=== PATIENT | male | born 1950 | race Caucasian/White ===

== ENCOUNTER 2017-06-19 22:41 | Inpatient (IN) | payer BC, OTHER ==
--- NOTE | 2017-06-19 23:12 | HP ---
CIWA Score - CIWA Score Nausea/Vomitin-Mild Nausea/No Vomiting Muscle Tremors: 4-Moderate,w/Arms Extend Anxiety: 4-Mod. Anxious/Guarded Agitation: 3 Paroxysmal Sweats: 1-Minimal Palms Moist Orientation: 0-Oriented Tacttile Disturbances: 0-None Auditory Disturbances: 0-None Visual Disturbances: 1-Very Mild Sensitivity Headache: 1-Very Mild CIWA-Ar Total Score: 15 Admission ROS BHS - HPI Chief Complaint: SEEKING DETOX DUE TO WITHDRAWAL SX'S FROM ALCOHOLISM. Allergies/Adverse Reactions: Allergies Allergy/AdvReac Type Severity Reaction Status Date / Time No Known Allergies Allergy Verified 01/10/13 08:30 History of Present Illness: 66 Y.O. MALE WITH LONG HX/O OF ALCOHOLISM SENT BY [facility] FOR DETOX TXMENT. CLIENT WAS SEEN AND TREATED FOR A FALL WHERE HE SUSTAINED A 5 CM LAC TO HIS FOREHEAD. HE HAS SINCE BEEN CLEARED FOR DETOX. CASE WAS D/W DR. MYERS WHOM ACCEPTED THE CLIENT. THIS IS CLIENTS FIRST TIME IN DETOX. Exam Limitations: No Limitations - Ebola screening Have you traveled outside of the country in the last 21 days: No Have you had contact with anyone from an Ebola affected area: No Have you been sick,other than usual withdrawal symptoms: No Do you have a fever: No - Review of Systems Constitutional: Loss of Appetite, Changes in sleep EENT: reports: Dental Problems (DENTURES) Respiratory: reports: No Symptoms reported Cardiac: reports: No Symptoms Reported GI: reports: Poor Appetite, Poor Fluid Intake : reports: No Symptoms Reported Musculoskeletal: reports: No Symptoms Reported Integumentary: reports: Flushing, Other (LAC TO FOREHEAD) Neuro: reports: No Symptoms reported Endocrine: reports: No Symptoms Reported Hematology: reports: No Symptoms Reported Psychiatric: reports: No Sypmtoms Reported Other Systems: Reviewed and Negative Patient History - Patient Medical History Hx Anemia: No Hx Asthma: No Hx Chronic Obstructive Pulmonary Disease (COPD): No Hx Cancer: No Hx Cardiac Disorders: No Hx Congestive Heart Failure: No Hx Hypertension: No Hx Hypercholesterolemia: No Hx Pacemaker: No HX Cerebrovascular Accident: No Hx Seizures: No Hx Dementia: No Hx Diabetes: No Hx Gastrointestinal Disorders: No Hx Liver Disease: No Hx Genitourinary Disorders: No Hx Sexually Transmitted Disorders: No Hx Renal Disease (ESRD): No Hx Thyroid Disease: No Hx Human Immunodeficiency Virus (HIV): No Hx Hepatitis C: No Hx Depression: No Hx Suicide Attempt: No Hx Bipolar Disorder: No Hx Schizophrenia: No Other Medical History: DENIES - Patient Surgical History Past Surgical History: Yes Other Surgical History: PROSTATE SURGERY-?PROSTATECTOMY Anesthesia Reaction: No - PPD History Previous Implant?: Yes Documented Results: Negative w/o proof Implanted On Prior [facility] Admission?: No PPD to be Administered?: Yes - Smoking Cessation Smoking history: Current some day smoker Have you smoked in the past 12 months: Yes Aproximately how many cigarettes per day: 6 Cigars Per Day: 0 Hx Chewing Tobacco Use: No Initiated information on smoking cessation: Yes 'Breaking Loose' booklet given: 06/19/17 - Substance & Tx. History Hx Alcohol Use: Yes Hx Substance Use: Yes Substance Use Type: Alcohol Hx Substance Use Treatment: No - Substances Abused WINE Route: Oral Frequency: 3-6 times per week Amount used: 2 GLASSES Age of first use: 21 Date of Last Use: 06/19/17 Admission Physical Exam [facility] - Physical General Appearance: Yes: Mild Distress, Tremorous, Anxious HEENTM: Yes: EOMI, SHAMEKA, Pharynx Normal, Mc (FRONTAL SCALP HEMATOMA), Other ( NASAL BRUSING 2/2 FALL WITH BILATERAL NASAL BONE FX) Respiratory: Yes: Chest Non-Tender, Lungs Clear, Normal Breath Sounds, No Respiratory Distress, No Accessory Muscle Use Neck: Yes: No masses,lesions,Nodules, Supple, Trachea in good position Breast: Yes: Breast Exam Deferred Cardiology: Yes: Regular Rhythm, Regular Rate, S1, S2 Abdominal: Yes: Normal Bowel Sounds, Non Tender, Flat, Soft Genitourinary: Yes: Within Normal Limits Back: Yes: Normal Inspection Musculoskeletal: Yes: full range of Motion, Gait Steady Extremities: Yes: Normal Range of Motion, Non-Tender, Tremors Neurological: Yes: Alert, Motor Strength 5/5 Integumentary: Yes: Warm, Other (FACIAL FLUSHING 7 CM LAC TO FOREHEAD WITH DERMABOND) Lymphatic: Yes: Within Normal Limits - Diagnostic (1) Alcohol dependence with uncomplicated withdrawal Current Visit: Yes Status: Chronic (2) Nicotine dependence Current Visit: Yes Status: Chronic Qualifiers: Nicotine product type: cigarettes Substance use status: uncomplicated Qualified Code(s): F17.210 - Nicotine dependence, cigarettes, uncomplicated (3) Lupus Current Visit: Yes Status: Chronic (4) Laceration of forehead Current Visit: Yes Status: Acute (5) Nasal bone fracture Current Visit: Yes Status: Acute (6) Hematoma of frontal scalp Current Visit: Yes Status: Acute Cleared for Admission S - Detox or Rehab [facility] Level of Care: Medically Managed Detox Regimen/Protocol: Librium
[2017-06-19] MEDS ORDERED: P-EPHED 60MG/TRIPROLIDI 2.5MG TABLET PO PRN (23:23)
[2017-06-19] MEDS ORDERED: MAGNESIUM HYDROX 2400MG/30ML ORAL SUSPENSION 30 ML CUP PO PRN (23:23)
[2017-06-19] MEDS ORDERED: NICOTINE POLACRILEX 2 MG GUM BC PRN (23:23)
[2017-06-19] MEDS ORDERED: LOPERAMIDE HCL 2 MG CAPSULE PO PRN (23:23)
[2017-06-19] MEDS ORDERED: hydrOXYzine PAMOATE 50 MG CAPSULE (FP) PO PRN (23:23)
[2017-06-19] MEDS ORDERED: chlordiazePOXIDE HCL 25 MG CAPSULE PO PRN (23:23)
[2017-06-19] MEDS ORDERED: guaiFENesin/D-METHORPHAN HB 10 ML UNIT-DOSE CUPS PO PRN (23:23)
[2017-06-19] MEDS ORDERED: MAGNESIUM CITRATE 300 ML BOTTLE PO PRN (23:23)
[2017-06-19] MEDS ORDERED: IBUPROFEN 400 MG TABLET (FP) PO PRN (23:23)
[2017-06-19] MEDS ORDERED: MAG HYDROX/AL HYDROX/SIMETH 30 ML UNIT-DOSE CUP PO PRN (23:23)
[2017-06-19] MEDS ORDERED: MENTHOL/PHENOL 1 EACH UD MM PRN (23:23)
[2017-06-19 23:39] VITALS: BMI 21.8
[2017-06-20] MEDS: chlordiazePOXIDE HCL 25 MG CAPSULE PO SCH ×4 (01:32→17:34)
--- NOTE | 2017-06-20 07:29 | PN ---
[facility] Progress Note Note: LATE ENTRY INFORMED CLIENT FELL WHILE IN [facility] AROUND 12:20 am. PER CLIENT HE STUMBLED WHEN HE GOT UP FROM A SEATED POSITION DUE TO R KNEE WEAKNESS. HE PUT HIS HANDS ON THE GROUND NOT TO FALL. DENIES ANY NEW INJURIES PE: NO VISIBLE INJURIES P: CONT FALL PROTOCOL #1 CANE TO ASSIST WITH AMBULATION
[2017-06-20] MEDS: NICOTINE 14 MG/24 HOURS TOPICAL PATCH TD SCH (10:31)
[2017-06-20] MEDS: PRENATAL VITAMINS W/ FOLIC ACID TABLET (FP) PO SCH (10:31)
--- NOTE | 2017-06-20 12:18 | EKG ---
Test Reason : Blood Pressure : / mmHG Vent. Rate : 076 BPM Atrial Rate : 076 BPM P-R Int : 138 ms QRS Dur : 078 ms QT Int : 378 ms P-R-T Axes : 066 070 073 degrees QTc Int : 425 ms NORMAL SINUS RHYTHM NORMAL ECG WHEN COMPARED WITH ECG OF 10-NOV-2012 22:58, NO SIGNIFICANT CHANGE WAS FOUND Confirmed by CATALINA RAMIREZ MD ([id number]) on 06/20/2017 12:18:30 PM Referred By: Confirmed By:CATALINA RAMIREZ MD
[2017-06-20 12:34] LABS: URINE APPEARANCE SLCLOUDY; URINE BILIRUBIN NEGATIVE (NEGATIVE); URINE BLOOD 1+ (NEGATIVE); URINE COLOR LTYELLOW; URINE GLUCOSE (UA) NEGATIVE (NEGATIVE); URINE KETONE TRACE (NEGATIVE); URINE LEUK ESTERASE NEGATIVE (NEGATIVE); URINE NITRITE NEGATIVE (NEGATIVE); URINE PROTEIN NEGATIVE (NEGATIVE); URINE UROBILINOGEN NEGATIVE mg/dL (0.2-1.0)
[2017-06-20 12:44] LABS: HEMATOCRIT 42.5 % (35.4-49); HEMOGLOBIN 13.5 GM/dL (11.7-16.9); MCH 29.7 pg (25.7-33.7); MCHC 31.8 g/dl (32.0-35.9); MEAN CELL VOLUME 93.3 fl (80-96); MEAN PLT VOLUME 8.2 fl (7.5-11.1); PLATELET COUNT 214 K/MM3 (134-434); RBC 4.55 M/mm3 (4.00-5.60); RDW 14.6 % (11.9-15.9); WHITE BLOOD COUNT 5.9 K/mm3 (4.0-10.0)
[2017-06-20 12:49] LABS: CHLORIDE 103 mmol/L (98-107); POTASSIUM 4.2 mmol/L (3.5-5.1); SODIUM 138 mmol/L (136-145)
[2017-06-20 12:53] LABS: URINE BACTERIA RARE /hpf (NONE SEEN)
[2017-06-20 12:56] LABS: ALBUMIN 3.8 g/dl (3.4-5.0); ALK PHOS 65 U/L (45-117); ANION GAP 5 (8-16); BILIRUBIN,TOTAL 0.5 mg/dL (0.2-1.0); BLOOD UREA NITROGEN 11 mg/dL (7-18); CALCIUM 8.3 mg/dL (8.5-10.1); CO2 30 mmol/L (21-32); CREATININE 0.8 mg/dL (0.7-1.3); GLUCOSE,RANDOM 72 mg/dL (74-106); SGOT/AST 21 U/L (15-37); SGPT/ALT 20 U/L (12-78); TOT PROT 6.7 g/dl (6.4-8.2)
[2017-06-20] MEDS: HYDROCORTISONE VALERATE TP SCH ×2 (13:34→22:24)
[2017-06-20] MEDS: PIMECROLIMUS TP SCH (13:34)
--- NOTE | 2017-06-20 16:19 | PN ---
[facility] CIWA - CIWA Score Nausea/Vomitin-No Nausea/No Vomiting Muscle Tremors: 3 Anxiety: 4-Mod. Anxious/Guarded Agitation: 3 Paroxysmal Sweats: 1-Minimal Palms Moist Orientation: 0-Oriented Tacttile Disturbances: 3-Moderate Itch/Numb/Burn Auditory Disturbances: 0-None Visual Disturbances: 2-Mild Sensitivity Headache: 0-None Present CIWA-Ar Total Score: 16 BHS Progress Note (SOAP) Subjective: Sweating, Tremors, Interrupted sleep, Anxious. Objective: PT. A & O X 3, OBSERVED AMBULATING ON UNIT. NO ACUTE DISTRESS. 06/20/17 16:16 Vital Signs Temperature 98.1 F 06/20/17 15:05 Pulse Rate 84 06/20/17 15:05 Respiratory Rate 18 06/20/17 15:05 Blood Pressure 118/75 06/20/17 15:05 O2 Sat by Pulse Oximetry (%) Laboratory Tests 06/20/17 06/20/17 06/20/17 07:50 07:50 07:50 WBC 5.9 RBC 4.55 Hgb 13.5 Hct 42.5 MCV 93.3 MCH 29.7 MCHC 31.8 L RDW 14.6 Plt Count 214 D MPV 8.2 Sodium 138 Potassium 4.2 Chloride 103 Carbon Dioxide 30 Anion Gap 5 L BUN 11 D Creatinine 0.8 Creat Clearance w eGFR > 60 Random Glucose 72 L D Calcium 8.3 L Total Bilirubin 0.5 D AST 21 D ALT 20 Alkaline Phosphatase 65 Total Protein 6.7 Albumin 3.8 Urine Color Urine Appearance Urine pH Ur Specific [place] Urine Protein Urine Glucose (UA) Urine Ketones Urine Blood Urine Nitrite Urine Bilirubin Urine Urobilinogen Ur Leukocyte Esterase Urine WBC (Auto) Urine RBC (Auto) Urine Bacteria RPR Titer Nonreactive 06/20/17 08:30 WBC RBC Hgb Hct MCV MCH MCHC RDW Plt Count MPV Sodium Potassium Chloride Carbon Dioxide Anion Gap BUN Creatinine Creat Clearance w eGFR Random Glucose Calcium Total Bilirubin AST ALT Alkaline Phosphatase Total Protein Albumin Urine Color Ltyellow Urine Appearance Slcloudy Urine pH 7.0 Ur Specific [place] 1.013 Urine Protein Negative Urine Glucose (UA) Negative Urine Ketones Trace H Urine Blood 1+ H Urine Nitrite Negative Urine Bilirubin Negative Urine Urobilinogen Negative Ur Leukocyte Esterase Negative Urine WBC (Auto) None Urine RBC (Auto) 4 Urine Bacteria Rare RPR Titer LABS NOTED. Assessment: 06/20/17 16:17 WITHDRAWAL SYMPTOMS. Plan: CONTINUE DETOX.
[2017-06-20] MEDS: THIAMINE HCL 100 MG TABLET (FP) PO SCH (22:24)
[2017-06-20] MEDS: chlordiazePOXIDE 5 MG CAPSULE PO SCH (22:24)
[2017-06-21] MEDS: chlordiazePOXIDE 5 MG CAPSULE PO SCH ×3 (05:52→17:58)
[2017-06-21] MEDS: PRENATAL VITAMINS W/ FOLIC ACID TABLET (FP) PO SCH (10:16)
[2017-06-21] MEDS: NICOTINE 14 MG/24 HOURS TOPICAL PATCH TD SCH (10:17)
[2017-06-21] MEDS: PIMECROLIMUS TP SCH (10:18)
[2017-06-21] MEDS: HYDROCORTISONE VALERATE TP SCH ×2 (10:18→22:47)
--- NOTE | 2017-06-21 13:36 | PN ---
S CIWA - CIWA Score Nausea/Vomitin Muscle Tremors: 3 Anxiety: 3 Agitation: 2 Paroxysmal Sweats: 1-Minimal Palms Moist Orientation: 0-Oriented Tacttile Disturbances: 1-Very Mild Itch/Numbness Auditory Disturbances: 1-Very Mild Visual Disturbances: 0-None Headache: 2-Mild CIWA-Ar Total Score: 16 BHS Progress Note (SOAP) Subjective: ALERT,IRRITABLE,ANXIOUS,INTERRUPTED SLEEP,TREMOR,OLD LACERATION OF FRONTAL AREA Objective: 06/21/17 13:33 Vital Signs Temperature 99.0 F 06/21/17 13:16 Pulse Rate 74 06/21/17 13:16 Respiratory Rate 20 06/21/17 13:16 Blood Pressure 117/74 06/21/17 13:16 O2 Sat by Pulse Oximetry (%) Assessment: 06/21/17 13:34 WITHDRAWAL SYMPTOM Plan: CONTINUE DETOX,BACITRACIN OINTMENT BID
[2017-06-21] MEDS: BACITRACIN 15 GM TUBE TOPICAL OINTMENT TP SCH ×2 (15:12→22:46)
[2017-06-21] MEDS ORDERED: BACITRACIN 0.9 GM PACKET ONE (20:11)
[2017-06-21] MEDS: chlordiazePOXIDE HCL 10 MG CAPSULE PO SCH (22:47)
[2017-06-21] MEDS: THIAMINE HCL 100 MG TABLET (FP) PO SCH (22:47)
[2017-06-21] MEDS: ACETAMINOPHEN 325 MG TABLET (FP) PO PRN (22:48)
[2017-06-22] MEDS: chlordiazePOXIDE HCL 10 MG CAPSULE PO SCH ×3 (05:15→17:38)
[2017-06-22] MEDS: PRENATAL VITAMINS W/ FOLIC ACID TABLET (FP) PO SCH (10:15)
[2017-06-22] MEDS: NICOTINE 14 MG/24 HOURS TOPICAL PATCH TD SCH (10:17)
[2017-06-22] MEDS: PIMECROLIMUS TP SCH (10:18)
[2017-06-22] MEDS: HYDROCORTISONE VALERATE TP SCH ×2 (10:18→22:13)
[2017-06-22] MEDS: BACITRACIN 15 GM TUBE TOPICAL OINTMENT TP SCH ×2 (10:55→22:13)
--- NOTE | 2017-06-22 16:07 | PN ---
[facility] Progress Note (SOAP) Subjective: Tremors, Anxious. Objective: PT. A & O X 3, OBSERVED AMBULATING ON UNIT. NO ACUTE DISTRESS. WOUND PATIENT'S HEAD HEALING WELL. NO SIGNS OF INFECTION OR UNUSUAL DISCHARGE NOTED. 06/22/17 16:05 Vital Signs Temperature 97.7 F 06/22/17 13:57 Pulse Rate 77 06/22/17 13:57 Respiratory Rate 20 06/22/17 13:57 Blood Pressure 129/84 06/22/17 13:57 O2 Sat by Pulse Oximetry (%) Laboratory Tests 06/20/17 06/20/17 06/20/17 07:50 07:50 07:50 WBC 5.9 RBC 4.55 Hgb 13.5 Hct 42.5 MCV 93.3 MCH 29.7 MCHC 31.8 L RDW 14.6 Plt Count 214 D MPV 8.2 Sodium 138 Potassium 4.2 Chloride 103 Carbon Dioxide 30 Anion Gap 5 L BUN 11 D Creatinine 0.8 Creat Clearance w eGFR > 60 Random Glucose 72 L D Calcium 8.3 L Total Bilirubin 0.5 D AST 21 D ALT 20 Alkaline Phosphatase 65 Total Protein 6.7 Albumin 3.8 Urine Color Urine Appearance Urine pH Ur Specific [place] Urine Protein Urine Glucose (UA) Urine Ketones Urine Blood Urine Nitrite Urine Bilirubin Urine Urobilinogen Ur Leukocyte Esterase Urine WBC (Auto) Urine RBC (Auto) Urine Bacteria RPR Titer Nonreactive 06/20/17 08:30 WBC RBC Hgb Hct MCV MCH MCHC RDW Plt Count MPV Sodium Potassium Chloride Carbon Dioxide Anion Gap BUN Creatinine Creat Clearance w eGFR Random Glucose Calcium Total Bilirubin AST ALT Alkaline Phosphatase Total Protein Albumin Urine Color Ltyellow Urine Appearance Slcloudy Urine pH 7.0 Ur Specific [place] 1.013 Urine Protein Negative Urine Glucose (UA) Negative Urine Ketones Trace H Urine Blood 1+ H Urine Nitrite Negative Urine Bilirubin Negative Urine Urobilinogen Negative Ur Leukocyte Esterase Negative Urine WBC (Auto) None Urine RBC (Auto) 4 Urine Bacteria Rare RPR Titer LABS NOTED. Assessment: 06/22/17 16:06 WITHDRAWAL SYMPTOMS. Plan: CONTINUE DETOX. INCREASE DAILY PO FLUID INTAKE.
[2017-06-22] MEDS: ACETAMINOPHEN 325 MG TABLET (FP) PO PRN (22:11)
[2017-06-22] MEDS: THIAMINE HCL 100 MG TABLET (FP) PO SCH (22:12)
[2017-06-23 09:28] VITALS: BP 134/81; PULSE 83; TEMP 98.6
--- NOTE | 2017-06-23 16:30 | DS ---
[facility] Detox Discharge Summary Admission Date: 06/19/17 Discharge Date: 06/23/17 - History Present History: Alcohol Dependence Additional Comments: PATIENT RETURNING HOME, WILL ATTEND OUTPATIENT SUPPORT GROUP PROGRAMS. PATIENT ADVISED TO FOLLOW-UP WITH [employer] ATT[employer]ER DR. [place] ([place] AFTER DISCHARGE FROM DETOX FOR HISTORY OF RECENT HEAD INJURY. PATIENT WAS DISCHARGED FROM DETOX UNIT IN STABLE MEDICAL CONDITION. Pertinent Past History: Lupus, Laceration of Forehead, Nasal Bone Fracture, Hematoma of Frontal Scalp, Nicotine Dependence. - Physical Exam Results Vital Signs: Vital Signs Temperature 98.6 F 06/23/17 09:27 Pulse Rate 83 06/23/17 09:27 Respiratory Rate 18 06/23/17 09:27 Blood Pressure 134/81 06/23/17 09:27 O2 Sat by Pulse Oximetry (%) Pertinent Admission Physical Exam Findings: WITHDRAWAL SYMPTOMS. Laboratory Tests 06/20/17 06/20/17 06/20/17 07:50 07:50 07:50 WBC 5.9 RBC 4.55 Hgb 13.5 Hct 42.5 MCV 93.3 MCH 29.7 MCHC 31.8 L RDW 14.6 Plt Count 214 D MPV 8.2 Sodium 138 Potassium 4.2 Chloride 103 Carbon Dioxide 30 Anion Gap 5 L BUN 11 D Creatinine 0.8 Creat Clearance w eGFR > 60 Random Glucose 72 L D Calcium 8.3 L Total Bilirubin 0.5 D AST 21 D ALT 20 Alkaline Phosphatase 65 Total Protein 6.7 Albumin 3.8 Urine Color Urine Appearance Urine pH Ur Specific [place] Urine Protein Urine Glucose (UA) Urine Ketones Urine Blood Urine Nitrite Urine Bilirubin Urine Urobilinogen Ur Leukocyte Esterase Urine WBC (Auto) Urine RBC (Auto) Urine Bacteria RPR Titer Nonreactive 06/20/17 08:30 WBC RBC Hgb Hct MCV MCH MCHC RDW Plt Count MPV Sodium Potassium Chloride Carbon Dioxide Anion Gap BUN Creatinine Creat Clearance w eGFR Random Glucose Calcium Total Bilirubin AST ALT Alkaline Phosphatase Total Protein Albumin Urine Color Ltyellow Urine Appearance Slcloudy Urine pH 7.0 Ur Specific [place] 1.013 Urine Protein Negative Urine Glucose (UA) Negative Urine Ketones Trace H Urine Blood 1+ H Urine Nitrite Negative Urine Bilirubin Negative Urine Urobilinogen Negative Ur Leukocyte Esterase Negative Urine WBC (Auto) None Urine RBC (Auto) 4 Urine Bacteria Rare RPR Titer LABS NOTED. - Treatment Hospital Course: Detox Protocol Followed, Detoxed Safely, Responded well, Discharged Condition Good Patient has Accepted a Rehab Referral to: PT. GOING HOME, WILL ATTEND OUTPATIENT AA SUPPORT GROUP MEETINGS. - Medication Discharge Medications: Ambulatory Orders Multivitamin [Multivitamins] 1 each PO DAILY 01/10/13 Hydrocortisone Valerate 45 gm TP BID 06/19/17 Pimecrolimus [Elidel] 60 gm TP DAILY 06/19/17 Triamcinolone 0.1% Cream [Aristocort 0.1% Cream -] 1 applic TP BID 06/19/17 - Diagnosis (1) Hematoma of frontal scalp Status: Acute Qualifiers: Encounter type: subsequent encounter Qualified Code(s): S00.03XD - Contusion of scalp, subsequent encounter (2) Laceration of forehead Status: Acute Qualifiers: Encounter type: subsequent encounter Qualified Code(s): S01.81XD - Laceration without foreign body of other part of head, subsequent encounter (3) Nasal bone fracture Status: Acute Qualifiers: Encounter type: subsequent encounter Fracture type: closed Fracture healing: with routine healing Qualified Code(s): S02.2XXD - Fracture of nasal bones, subsequent encounter for fracture with routine healing (4) Alcohol dependence with uncomplicated withdrawal Status: Acute (5) Lupus Status: Chronic Qualifiers: Lupus erythematosus form: unspecified Qualified Code(s): 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
== END 2017-06-23 09:21 | disposition home or self-care (01) | DRG 897 ==
LOC: YASAS 22:41 → Y3N 23:48
PROVIDERS: ADMIT Internal Medicine; ATTEND Internal Medicine
PROC: HZ2ZZZZ Detoxification Services for Substance Abuse Treatment (ICD-10-PCS; principal; 2017-06-19)
DX: F10.230 Alcohol dependence with withdrawal, uncomplicated (principal); F17.210 Nicotine dependence, cigarettes, uncomplicated; L93.0 Discoid lupus erythematosus; S02.2XXD Fracture of nasal bones, subsequent encounter for fracture with routine healing; S01.81XD Laceration without foreign body of other part of head, subsequent encounter; S00.03XD Contusion of scalp, subsequent encounter; W19.XXXD Unspecified fall, subsequent encounter; Z90.79 Acquired absence of other genital organ(s)
CPT/HCPCS: 36415; 80053; 81003; 81015; 85027; 86593; 93005; 93010

== ENCOUNTER 2017-12-07 20:18 | Emergency (ER) | payer BC ==
[2017-12-07 20:47] VITALS: BP 115/67; PULSE 104; TEMP 98; BMI 24.9
--- NOTE | 2017-12-07 22:54 | PDOC ---
History of Present Illness - General Chief Complaint: Injury Stated Complaint: ALCOHOL INTOXICATION Time Seen by Provider: 12/07/17 20:43 - History of Present Illness Initial Comments: Mr Thien Angelo is a 66yo man with a history of chronic alcohol abuse who was brought to the ED by his and daughter following a presumed fall. Per his family, Mr Angelo has been drinking for the past 2 days and decided to walk to the liquor store this evening. He returned to their home with abrasions to his bilateral knees, hands, and left face. He reports that he tripped on the sidewalk and denies preceding lightheadedness, chest pain, or focal neurological symptoms. He denies head trauma or LOC. The fall was unwitnessed. Mr Angelo reports drinking 6 beers total, though his states that she saw an "almost empty bottle of vodka" at the home when she returned from work. Per his family, Mr Angelo had a similar fall over the winter. At that time, he was found unconscious at home with "blood everywhere" and was noted to have multiple abrasions. Chart review reveals that he was found to have delirium tremens during the prior admission. His family strongly requests that he be sent to detox, though the patient is currently declining. Family reports that previously the hospital "worked with them" and a social security specialist finally convinced him to go to rehab, and they are requesting the same today. 12/07/17 23:06 Past History - Past Medical History Allergies/Adverse Reactions: Allergies Allergy/AdvReac Type Severity Reaction Status Date / Time No Known Allergies Allergy Verified 12/07/17 20:41 Home Medications: Ambulatory Orders Multivitamin [Multivitamins] 1 each PO DAILY 01/10/13 Hydrocortisone Valerate 45 gm TP BID 06/19/17 Pimecrolimus [Elidel] 60 gm TP DAILY 06/19/17 Triamcinolone 0.1% Cream [Aristocort 0.1% Cream -] 1 applic TP BID 06/19/17 Anemia: No Asthma: No Cancer: No Cardiac Disorders: No CVA: No COPD: No CHF: No Dementia: No Diabetes: No GI Disorders: No Disorders: No HTN: No Hypercholesterolemia: No Liver Disease: No Seizures: No Thyroid Disease: No - Surgical History Abdominal Surgery: No Appendectomy: No Cardiac Surgery: No Cholecystectomy: No Lung Surgery: No Neurologic Surgery: No Orthopedic Surgery: Yes (rt pablo fx at age 24yrs) - Reproductive History Testicular Surgery: No - Immunization History Td Vaccination: Yes Immunization Up to Date: Yes - Suicide/Smoking/Psychosocial Hx Smoking Status: No Smoking History: Current every day smoker Years of Tobacco Use: 5 Have you smoked in the past 12 months: Yes Number of Cigarettes Smoked Daily: 20 Cigars Per Day: 0 Information on smoking cessation initiated: No 'Breaking Loose' booklet given: 06/19/17 Hx Alcohol Use: No Drug/Substance Use Hx: No Substance Use Type: Alcohol Hx Substance Use Treatment: No Review of Systems - Review of Systems Comments:: General: No fevers, no chills, no weight or appetite change, no malaise HEENT: No changes in vision, no changes in hearing, no congestion, no sore throat CV: No chest pain, no palpitations, no LE edema Pulm: No SOB, no cough, no wheezing GI: No nausea or vomiting, no change in bowel habits, no melena : No frequency, no urgency, no dysuria Musc: No back pain, no joint swelling, no recent injury Skin: No rash, no lesions, no erythema Endo: No excessive thirst, no heat/cold intolerance Heme: No unusual bruising or bleeding, no swollen glands Neuro: No syncope, no numbness/tingling, no focal weakness Vasc: No claudication Psych: No recent change in mood, no SI or HI. h/o depression *Physical Exam - Vital Signs Last Vital Signs Temp Pulse Resp BP Pulse Ox 98 F 104 H 16 115/67 100 12/07/17 20:18 12/07/17 20:18 12/07/17 20:18 12/07/17 20:18 12/07/17 20:18 - Physical Exam Comments: General: Intoxicated, comfortable, no acute distress HEENT: PERRL, EOMI, MMM, voice normal, normal neck ROM, no LAD. 1cm abrasion to left jehovah's witness. Very small abrasion/laceration to left chin. No active bleeding, dried blood on face. Cards: RRR, no murmur appreciated Pulm: Comfortable on room air, clear to auscultation bilaterally Abd: Soft, nontender, nondistended Ext: Superficial abrasions to b/l knees. ROM intact. Nontender to palpation. No defomormity or obvious fracture. Able to ambulate without difficulty, can bear full weight on both legs. B/l hands with multiple superficial abrasions. 1cm jagged laceration at base of left 5th finger on palmar hand, no active bleeding, no surrounding erythema, no visible contamination. Strength 5/5 and equal bilaterally Vasc: Extremities WWP. Palpable radial and pedal pulses bilaterally Neuro: A&Ox3, CN grossly intact, normal speech, motor/sensory grossly intact and symmetric. Able to answer questions logically and thoroughly. Appropriate balance, can walk without difficulty. Psych: Mood appropriate to situation ED Treatment Course - ADDITIONAL ORDERS Additional order review: Laboratory Results 12/07/17 21:56 POC Glucometer [id number] 12/07/17 21:56 POC Glucometer [id number] - RADIOLOGY Radiology Studies Ordered: Category Date Time Status HEAD CT WITHOUT CONTRAST [CT] Stat CT Scan 12/07/17 21:29 Ordered Medical Decision Making - Medical Decision Making Thien Angelo is a 66yo man with a history of chronic alcohol abuse who presents to the ED with multiple abrasions to the left face, b/l hands, and b/l knees following an unwitnessed fall while intoxicated. - Abrasions to knees and face superficial. Cleaned with betadine and sterile water, left open to air - Laceration to left 5th finger poorly approximated, small amount of missing tissue at edges. Cleaned with betadine and water. Patient declined sutures. Repaired with dermabond. - No concern for fracture to knees. No tenderness along bones, no deformity. Able to bear weight. No xrays indicated - Given abrasions on face, patient's age, and intoxication will order non- contrast CT head to rule out bleed. - Extensive discussion with family regarding sending Mr Angelo to detox. - Explained that he is refusing detox at this time and cannot be sent against his will as he is an adult and has capacity to make his own decisions. - Family reported that previously he also did not wish to go, but social work convinced him. Explained that there will be a social security specialist available tomorrow, but barring any medical reason to admit Mr Angelo he cannot be held in the hospital - Family reported that he was previously kept in the hospital due to intoxication. Explained that notes from previous admission report DTs and that this is a valid medical reason for hospital admission and can be life threatening. Discussed that currently Mr Angelo is coherent, alert and oriented , and has coordinated physical movements. He can walk without difficulty and maintain a conversation. - Family reported that they feared for their safety because Mr Angelo smokes at home; they fear he will burn down the house and request that he be kept in the hospital as he is a danger to others. Discussed that smoking cigarettes is not a reason to determine that someone is a danger to others. - Mr Angelo's and daughter left the hospital at this point. Update: - Head CT completed. No intracranial bleed noted. While waiting for radiology report, Mr Angelo eloped from the ED. He was not seen walking out of the ED. The waiting room and parking lot were checked in case he was outside smoking, but he was not located. - It was determined that police did not need to be contacted as Mr Angelo lives only several blocks from the hospital. Additionally, he was ambulating well and A&Ox3. -The patient's home was called to ensure that he reached his home safely. No one answered the phone at the number listed. Seen and discussed with Dr Esparza. *DC/Admit/Observation/Transfer Diagnosis at time of Disposition: Abrasion of knee, bilateral Abrasion head Qualifiers: Encounter type: initial encounter Qualified Code(s): S00.91XA - Abrasion of unspecified part of head, initial encounter Laceration of hand Qualifiers: Encounter type: initial encounter Foreign body presence: without foreign body Laterality: left Qualified Code(s): S61.412A - Laceration without foreign body of left hand, initial encounter Alcohol intoxication Qualifiers: Complication of substance-induced condition: uncomplicated Qualified Code(s): F10.920 - Alcohol use, unspecified with intoxication, uncomplicated - Discharge Dispostion Disposition: ELOPED Condition at time of disposition: Fair Decision to Admit order: No - Referrals Referrals: Ellis Baron MD [Staff Physician] - - Patient Instructions Printed Discharge Instructions: DI for Abrasion, DI for Alcohol Abuse, Delirium Tremens - Post Discharge Activity
--- NOTE | 2017-12-07 23:16 | PDOC ---
Attending Attestation - Resident Resident Name: Afia Antony - ED Attending Attestation I have performed the following: I have examined & evaluated the patient, The case was reviewed & discussed with the resident, I agree w/resident's findings & plan, Exceptions are as noted - HPI HPI: 12/07/17 23:32 66-year-old male brought in by family after falling. Long-standing history of alcoholism and he was walking to a liquor store and fell sustaining abrasions to bilateral hands, bilateral knees and his face. Patient has alcohol on breath. The family wants him to go to detox, however, he is not interested. 12/07/17 23:47 - Physicial Exam PE: 12/08/17 03:05 intoxicated 66 yo male with abrasios to b/l knees and forearms and bruising to face was sent for CT SCAN head 12/08/17 03:07 head ecchymosis to left mandible neck supple, no c spine tenderness lungs cta b.l cvd [id number] and no rebound ,no guarding skin multiple abrasions to arms and knees neuro AOB,no facial droop, motor strength 5/5 bilaterally, ambulatory - Medical Decision Making 12/08/17 03:09 ct scan head no acute intracranial pathology,no skull fracture patient imp etoh intox, ELOPED
== END 2017-12-07 23:54 | disposition left against medical advice (07) ==
LOC: JER 20:18
DX: F10.920 Alcohol use, unspecified with intoxication, uncomplicated (principal); S61.412A Laceration without foreign body of left hand, initial encounter; S00.91XA Abrasion of unspecified part of head, initial encounter; W18.39XA Other fall on same level, initial encounter; Y93.89 Activity, other specified; Y92.9 Unspecified place or not applicable
CPT/HCPCS: 70450-TC; 82962; 99282-25

== ENCOUNTER 2018-05-29 14:33 | Inpatient (IN) | payer BC, OTHER ==
--- NOTE | 2018-05-29 15:01 | PDOC ---
History of Present Illness <Shawnee Ortez - Last Filed: 05/29/18 18:48> - General History Source: Patient Exam Limitations: Intoxication - History of Present Illness Initial Comments: : Yasemin Kenney [phone] 05/29/18 17:03 <Stephany Walker - Last Filed: 05/29/18 19:35> - General Stated Complaint: FELL Time Seen by Provider: 05/29/18 15:00 Past History <Shawnee Ortez - Last Filed: 05/29/18 18:48> - Past Medical History Anemia: No Asthma: No Cancer: No Cardiac Disorders: No CVA: No COPD: No CHF: No DVT: No Dementia: No Diabetes: No Dialysis: No GI Disorders: No Disorders: No HTN: Yes (on lisinopril ) Hypercholesterolemia: No Liver Disease: No Seizures: No Thyroid Disease: No - Surgical History Abdominal Surgery: No Appendectomy: No Cardiac Surgery: No Cholecystectomy: No Lung Surgery: No Neurologic Surgery: No Orthopedic Surgery: Yes (rt pablo fx at age 24yrs) - Reproductive History Testicular Surgery: No - Immunization History Td Vaccination: Yes Immunization Up to Date: Yes - Suicide/Smoking/Psychosocial Hx Smoking Status: No Smoking History: Current every day smoker Years of Tobacco Use: 5 Have you smoked in the past 12 months: Yes Number of Cigarettes Smoked Daily: 20 Cigars Per Day: 0 'Breaking Loose' booklet given: 12/16/17 Hx Alcohol Use: Yes Drug/Substance Use Hx: No Substance Use Type: Alcohol (Started drinking alcohol at age 21, consumes 5 cans daily. Last drank on 12/08/17) Hx Substance Use Treatment: Yes (One previousinpt detox. First inpt rehab) <Stephany Walker - Last Filed: 05/29/18 19:35> - Past Medical History Allergies/Adverse Reactions: Allergies Allergy/AdvReac Type Severity Reaction Status Date / Time No Known Allergies Allergy Verified 12/16/17 20:42 Home Medications: Ambulatory Orders NK [No Known Home Medication] 05/29/18 *Physical Exam - Vital Signs Last Vital Signs Temp Pulse Resp BP Pulse Ox 97.8 F 93 H 16 99/63 98 05/29/18 15:20 05/29/18 17:00 05/29/18 17:00 05/29/18 17:00 05/29/18 17:00 <Shawnee Ortez - Last Filed: 05/29/18 18:48> Moderate Sedation - Procedure Monitoring Vital Signs: Procedure Monitoring Vital Signs Temperature 97.8 F 05/29/18 15:20 Pulse Rate 93 H 05/29/18 17:00 Respiratory Rate 16 05/29/18 17:00 Blood Pressure 99/63 05/29/18 17:00 O2 Sat by Pulse Oximetry (%) 98 05/29/18 17:00 <Shawnee Ortez - Last Filed: 05/29/18 18:48> Procedures - Laceration/Wound Repair Head Wound Length: 2.6 to 5.0 cm Wound Explored: clean, no foreign body present Wound's Depth, Shape: superficial, linear Irrigated w/ Saline: Yes Betadine Prep: Yes Wound Debrided: minimal Wound Repaired With: Mohini Number of Sutures: 6 Layer Closure: No Sterile Dressing Applied: Yes Splint Applied: No Sling Applied: No Left Eye Wound Length: to 2.5 cm Wound Explored: clean Wound's Depth, Shape: superficial Irrigated w/ Saline: Yes Betadine Prep: Yes Wound Debrided: minimal Wound Repaired With: Dermabond <Stephany Walker - Last Filed: 05/29/18 19:35> ED Treatment Course - LABORATORY CBC & Chemistry Diagram: 05/29/18 16:05 05/29/18 16:05 - ADDITIONAL ORDERS Additional order review: Laboratory Results 05/29/18 05/29/18 05/29/18 16:22 16:05 16:05 PT with INR 10.80 INR 0.92 Sodium Potassium Chloride Carbon Dioxide Anion Gap BUN Creatinine Creat Clearance w eGFR POC Glucometer 77.44822 Random Glucose Lactic Acid 2.2 H* Calcium Phosphorus Magnesium Total Bilirubin AST ALT Alkaline Phosphatase Creatine Kinase Troponin I Total Protein Albumin Alcohol, Quantitative 05/29/18 16:05 PT with INR INR Sodium 143 Potassium 4.3 Chloride 112 H Carbon Dioxide 22 Anion Gap 9 BUN 18 Creatinine 1.0 Creat Clearance w eGFR > 60 POC Glucometer Random Glucose 83 Lactic Acid Calcium 9.0 Phosphorus 3.6 Magnesium 2.5 H Total Bilirubin 0.3 AST 34 ALT 46 Alkaline Phosphatase 88 Creatine Kinase 149 Troponin I < 0.02 Total Protein 7.6 Albumin 4.2 Alcohol, Quantitative 347.6 H 05/29/18 05/29/18 16:22 16:05 RBC 5.08 MCV 89.4 MCHC 34.1 RDW 15.5 MPV 7.6 Neutrophils % 65.6 Lymphocytes % 24.4 Monocytes % 8.5 Eosinophils % 0.7 Basophils % 0.8 POC Glucometer 77.69176 - Medications Given in the ED: ED Medications Discontinued Medications Generic Name Dose Route Start Last Admin Trade Name Jett PRN Reason Stop Dose Admin Haloperidol 2.5 mg 05/29/18 16:10 05/29/18 16:36 Haldol Injection (Fast Acting) - IM 05/29/18 16:11 2.5 mg ONCE ONE Administration Lorazepam 2 mg 05/29/18 16:34 05/29/18 16:42 Ativan Injection - IM 05/29/18 16:35 Not Given ONCE ONE Lorazepam 2 mg 05/29/18 16:50 05/29/18 17:00 Ativan Injection - IVPUSH 05/29/18 16:51 2 mg ONCE ONE Administration <Shawnee Ortez - Last Filed: 05/29/18 18:48> - LABORATORY CBC & Chemistry Diagram: 05/29/18 16:05 05/29/18 16:05 <Stephany Walker - Last Filed: 05/29/18 19:35> Medical Decision Making - Medical Decision Making Pt was seen at bedside, also will be seen by attending [ ]. Pt presenting with Vitals stable, pt afebrile. Pt in NAD, normal body habitus. PE showed pt alert and oriented. 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 Oropharynx without erythema or exudates. No nasal congestion, hearing intact. Clear heart sounds, S1/S2, no JVD, b/l pedal edema, or heart murmur. Clear lung sounds, no respiratory distress, wheezes, crackles, accessory muscle use, or respiratory distress. No abdominal or CVA tenderness to palpation, no rebound, no guarding. Abdomen soft, non-distended, and with normoactive bowel sounds. Skin without jaundice or rash. Considering [vs vs] Ordered work-up including [labs] and [imaging]. Provided [interventions/meds] for improvement of [pain/symptom control]. Will continue to reassess pt and monitor for symptomatic improvement. ECG: NSR, intervals WNL. No TWIs or significant ST segment changes. No significant changes from prior ECG. PT attempted to get out of bed (guard rails were up) and fell onto his b/l knees. Pt was quickly picked up by staff members. No new injuries appeared to have occurred. Pt did not have pain over knees. 05/29/18 17:02 Provided 0.5 mg Haldol IM, pt continued to be agitated, pulling out IV lines, head wrap. Provided 2 mg IM ativan. Pt gently sedated, mittens and vest applied. Pt relaxed but responsive to verbal stimuli. 05/29/18 17:[address]: no acute bleed or stroke CT cervical spine: moderate degenerate changes, no acute fracture. Chest x-ray: appears similar to prior (12/2017); no focal infiltrates present. CBC: WNL CMP: generally WNL; Mg 2.5 INR 0.92 Trop <.02 Alcohol level 347. Pt has not provided urine sample for drug tox, but states pt only has a problem with alcohol, and police/EMS only found alcohol at the residence. Will wait for pt to become more clinically sober, and determine pts desire for detox. 05/29/18 17:24 Pt admitted to hospitalist team (Dr. Moreau) for tele observation -- lactic acidosis and alcohol withdrawal/detox. 05/29/18 19:34 <Stephany Walker - Last Filed: 05/29/18 19:35> *DC/Admit/Observation/Transfer - Discharge Dispostion Decision to Admit order: Yes <Shawnee Ortez - Last Filed: 05/29/18 18:48> - Discharge Dispostion Decision to Admit order: Yes <Stephany Walker - Last Filed: 05/29/18 19:35> Diagnosis at time of Disposition: Lactic acidosis Fall Qualifiers: Encounter type: initial encounter Qualified Code(s): W19.XXXA - Unspecified fall, initial encounter Alcohol intoxication Qualifiers: Complication of substance-induced condition: with unspecified complication Qualified Code(s): F10.929 - Alcohol use, unspecified with intoxication, unspecified - Discharge Dispostion Condition at time of disposition: Stable
--- NOTE | 2018-05-29 15:03 | PDOC ---
History of Present Illness - General Stated Complaint: FELL - History of Present Illness Initial Comments: 05/29/18 15:00 67 yo M with h/o HTN, HLD, Lupus, who p/w Patient denies N/V, F,C, CP, SOB, urinary complaints, abdominal pain, diarrhea, constipation, lightheadedness, weakness, sensory changes. PMHx: as noted above ROS: as noted SHx: Allergies: Past History - Past Medical History Allergies/Adverse Reactions: Allergies Allergy/AdvReac Type Severity Reaction Status Date / Time No Known Allergies Allergy Verified 12/16/17 20:42 Home Medications: Ambulatory Orders Acamprosate Calcium 666 mg PO TIDCM 12/09/17 Fluoxetine HCl 10 mg PO DAILY 12/09/17 Lisinopril [Prinivil] 10 mg PO DAILY #0 tablet 12/16/17 Nicotine Patch [Nicoderm Patch -] 21 mg TD DAILY patch 12/16/17 Aspirin Coated [Ecotrin -] 81 mg PO DAILY #30 tablet.ec 12/30/17 Fluoxetine HCl [Prozac -] 10 mg PO DAILY #30 capsule 12/30/17 Lisinopril [Prinivil] 10 mg PO DAILY #30 tablet 12/30/17 Acamprosate Calcium [Campral -] 666 mg PO TIDCM #180 tablet. 12/31/17 Anemia: No Asthma: No Cancer: No Cardiac Disorders: No CVA: No COPD: No CHF: No DVT: No Dementia: No Diabetes: No Dialysis: No GI Disorders: No Disorders: No HTN: Yes (on lisinopril ) Hypercholesterolemia: No Liver Disease: No Seizures: No Thyroid Disease: No - Surgical History Abdominal Surgery: No Appendectomy: No Cardiac Surgery: No Cholecystectomy: No Lung Surgery: No Neurologic Surgery: No Orthopedic Surgery: Yes (rt shouler fx at age 24yrs) - Reproductive History Testicular Surgery: No - Immunization History Td Vaccination: Yes Immunization Up to Date: Yes - Suicide/Smoking/Psychosocial Hx Smoking Status: No Smoking History: Current every day smoker Years of Tobacco Use: 5 Have you smoked in the past 12 months: Yes Number of Cigarettes Smoked Daily: 20 Cigars Per Day: 0 'Breaking Loose' booklet given: 12/16/17 Hx Alcohol Use: Yes Drug/Substance Use Hx: No Substance Use Type: Alcohol (Started drinking alcohol at age 21, consumes 5 cans daily. Last drank on 12/08/17) Hx Substance Use Treatment: Yes (One previousinpt detox. First inpt rehab) Review of Systems - Review of Systems Comments:: 05/29/18 15:01 GENERAL/CONSTITUTIONAL: No fever or chills. No weakness. HEAD, EYES, EARS, NOSE AND THROAT: No change in vision. No ear pain or discharge. No sore throat. CARDIOVASCULAR: No chest pain or shortness of breath RESPIRATORY: No cough, wheezing, or hemoptysis. GASTROINTESTINAL: No nausea, vomiting, diarrhea or constipation. GENITOURINARY: No dysuria, frequency, or change in urination. MUSCULOSKELETAL: No joint or muscle swelling or pain. No neck or back pain. SKIN: No rash NEUROLOGIC: No headache, vertigo, loss of consciousness, or change in strength/ sensation. ENDOCRINE: No increased thirst. No abnormal weight change HEMATOLOGIC/LYMPHATIC: No anemia, easy bleeding, or history of blood clots. ALLERGIC/IMMUNOLOGIC: No hives or skin allergy. *Physical Exam - Physical Exam Comments: 05/29/18 15:01 GENERAL: Awake, alert, and fully oriented, in no acute distress HEAD: No signs of trauma, normocephalic, atraumatic EYES: PERRLA, EOMI, sclera anicteric, conjunctiva clear ENT: Auricles normal inspection, hearing grossly normal, nares patent, oropharynx clear without exudates. Moist mucosa NECK: Normal ROM, supple, no lymphadenopathy, JVD, or masses LUNGS: No distress, speaks full sentences, clear to auscultation bilaterally HEART: Regular rate and rhythm, normal S1 and S2, no murmurs, rubs or gallops, peripheral pulses normal and equal bilaterally. ABDOMEN: Soft, nontender, normoactive bowel sounds. No guarding, no rebound. No masses EXTREMITIES : Normal inspection, Normal range of motion, no edema. No clubbing or cyanosis. NEUROLOGICAL: Cranial nerves II through XII grossly intact. Normal speech, normal gait, no focal sensorimotor deficits SKIN: Warm, Dry, normal turgor, no rashes or lesions noted ED Treatment Course - RADIOLOGY Radiology Studies Ordered: Category Date Time Status CERVICAL SPINE CT W/O CONTR [CT] Stat CT Scan 05/29/18 14:[address] WITHOUT CONTRAST [CT] Stat CT Scan 05/29/18 14:59 Ordered *DC/Admit/Observation/Transfer Diagnosis at time of Disposition: Fall Qualifiers: Encounter type: initial encounter Qualified Code(s): W19.XXXA - Unspecified fall, initial encounter - Discharge Dispostion Disposition: HOME Condition at time of disposition: Stable Decision to Admit order: No - Referrals - Patient Instructions Additional Instructions: Please return to the emergency department with any new or worsening symptoms or concerns. Please follow up with your primary care physician within 72 hours. - Post Discharge Activity - Attestations Physician Attestion: 05/29/18 15:02 I attest to the information provided in this note.
[2018-05-29 15:14] VITALS: BMI 19.8
--- NOTE | 2018-05-29 15:42 | PDOC ---
Attending Attestation - HPI HPI: 05/29/18 16:13 The patient is a 67 year old male with past medical history significant for HTN , LUPUS and ETOH abuse presents to the emergency department via EMS s/p a fall. The history is provided by EMS. He was found on the floor by his when she returned home. The patient reports he had 2 bottle of vodka today. The patient has a laceration to the top of his head. The patient was seen at the ER multiple times for falls and intoxication. Unable to obtain detailed history due to intoxication. Allergies: NKDA Social history: Tobacco user, alcohol user. No drug use reported. Surgical history: right shoulder fracture (at age 24), prostate surgery, L. inguinal hernia (repair 5 years ago). PCP: None reported - Medical Decision Making 05/29/18 16:13 Documentation prepared by Alida Gomez, acting as medical assistant ob gyn for Shawnee Ortez MD. <Alida Gomez - Last Filed: 05/29/18 16:13> - Resident Resident Name: Stephany Walker - ED Attending Attestation I have performed the following: I have examined & evaluated the patient, The case was reviewed & discussed with the resident, I agree w/resident's findings & plan, Exceptions are as noted - HPI HPI: 05/29/18 15:40 05/29/18 18:32 - Physicial Exam PE: 05/29/18 16:26 awake alert head with mutliple abrasions laceration to superior head, and anterior scalp. small superficial laceration to lateral eyebrow upper lid. lungs clear bilaterally heart rrr no mrg abd soft nt nd. ext wwp. atraumatic. nuero pt alert, disoriented x 3. speech garbled. follows commands intermittently. skin as described above. - Medical Decision Making 05/29/18 16:28 differential intox, metabolic acidosos etoh keto-acidosis. rhabdo, ich, liver failure , delirium tremens. post ictal states. dehydration renal failure. plan ct head. ct cervical spine, lac repair to scalp with stables. superficial wounds treated with bacitracin labs 05/29/18 17:18 05/29/18 17:30 05/29/18 18:32 scalp wound stapled. compression dressing. bacitracin to wounds. placed on ciwa protocol. 05/29/18 18:33 pt labs unremarkable. lactic acidosis, etoh level 346. pt with require admission for safety, and likely withdrawal. head ct was negative for ICH. 05/29/18 18:37 pt with no wbc, no fever. cxr with right lung change but similar and improved in appearance to old cxr 12/15/17 05/29/18 18:48 signed out to resident dr fragoso for admission. will admit to Dr. Moreau 05/29/18 18:50 pt with lactic acidosis. no gap. given haldol and ativan for agitation now sleeping comfortably. waiting bed assignment. <Shawnee Ortez - Last Filed: 05/29/18 18:50> Heart Score/ECG Review #1 General ECG Interpretation: Sinus Rhythm, Normal Rate (93), Normal Intervals, No acute ischemic changes <Shawnee Ortez - Last Filed: 05/29/18 18:50>
[2018-05-29] MEDS ORDERED: BACITRACIN 0.9 GM PACKET ONE (15:54)
[2018-05-29] MEDS ORDERED: HALOPERIDOL LACTATE 5 MG/ML IM ONE (16:10)
[2018-05-29] MEDS ORDERED: HALOPERIDOL LACTATE 5 MG/ML ONE (16:10)
[2018-05-29] MEDS ORDERED: LORazepam 2 MG/ML SDV VIAL ONE (16:36)
[2018-05-29 16:37] LABS: BASO % 0.8 % (0-2.0); EOS % 0.7 % (0-4.5); HEMATOCRIT 45.4 % (35.4-49); HEMOGLOBIN 15.5 GM/dL (11.7-16.9); LYMPH % 24.4 % (8-40); MCH 30.4 pg (25.7-33.7); MCHC 34.1 g/dl (32.0-35.9); MEAN CELL VOLUME 89.4 fl (80-96); MEAN PLT VOLUME 7.6 fl (7.5-11.1); MONO % 8.5 % (3.8-10.2); NEUT % 65.6 % (42.8-82.8); PLATELET COUNT 198 K/MM3 (134-434); RBC 5.08 M/mm3 (4.00-5.60); RDW 15.5 % (11.9-15.9); WHITE BLOOD COUNT 8.1 K/mm3 (4.0-10.0)
[2018-05-29 16:54] LABS: INR 0.92 (0.83-1.09); PROTHROMBIN TIME (PATIENT) 10.8 SEC (9.7-13.0)
[2018-05-29 17:15] LABS: ALBUMIN 4.2 g/dl (3.4-5.0); ALK PHOS 88 U/L (45-117); ANION GAP 9 MMOL/L (8-16); BILIRUBIN,TOTAL 0.3 mg/dL (0.2-1); BLOOD UREA NITROGEN 18 mg/dL (7-18); CHLORIDE 112 mmol/L (98-107); CO2 22 mmol/L (21-32); GLUCOSE,RANDOM 83 mg/dL (74-106); MAGNESIUM 2.5 mg/dL (1.8-2.4); PHOSPHOROUS 3.6 mg/dL (2.5-4.9); POTASSIUM 4.3 mmol/L (3.5-5.1); SGOT/AST 34 U/L (15-37); SGPT/ALT 46 U/L (13-61); SODIUM 143 mmol/L (136-145); TOT PROT 7.6 g/dl (6.4-8.2)
[2018-05-29] MEDS ORDERED: FOLIC ACID INJECTION - 1 MG, THIAMINE HCL 100 MG, MULTIVIT INJECTION ADULT 10 ML in SOD... IVPB ONE (17:22)
[2018-05-29] MEDS ORDERED: SODIUM CHLORIDE 0.9% 1000 ML INFUS.BAG IV ONE (18:50)
[2018-05-29] MEDS ORDERED: SODIUM CHLORIDE 1,000 ML IV SCH (19:30)
[2018-05-29] MEDS: THIAMINE HCL 200 MG/2 ML VIAL IVPB SCH (19:40)
--- NOTE | 2018-05-29 19:59 | PN ---
Teaching Attending Note Name of Resident: Richie Jackson ATTENDING PHYSICIAN STATEMENT I saw and evaluated the patient. I reviewed the resident's note and discussed the case with the resident. I agree with the resident's findings and plan as documented. SUBJECTIVE: Seen and examined with resident; please refer to their note for further historical details. Briefly, this is a 67 y/o male with a PMH of HTN, EtOH abuse, who presents to the ER intoxicated; he drinks 2 bottles of alcohol daily. He fell and hit his head and was bleeding; this was appropriately managed in the ER. He was brought in by who says he may require additional care than she can provide. He got agitated in the ER and fell and thus was given additional sedation. He is improved now but still intoxicated and cannot provide hx. He has been to detox before; unknown if he wants to stop drinking. No s/s WD at this point. 10 sys ROS done and negative aside HPI PMH, PSH, FH, Social Hx reviewed and per resident note Medication list reviewed; no Rx medications OBJECTIVE: VS, labs, and imaging done NAD, AAO, resting in bed intoxicated but protecting airway RRR s1/2 no mgr NT ND +BS Sutured laceration; no other trauma, normocephalic, PERRLA EOMI Normal muscle tone, moves all 4 extremities Labs show unremarkable CBC and chemistry with Lactate 2.2; recheck pending EKG reviewed ASSESSMENT AND PLAN: Patient presents with EtOH intoxication and positive lactate 1) EtOH intoxication -Metabolize to exam, social work and CM consult given 's concerns, LR@100cc/ hr. 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 -CIWA protocol, thiamine/folate 2) Agitation -PRN Ativan, monitor neuro checks QShift. Likely due to intoxication 3) HTN, untreated -Monitor meds; if needed DC on amlodipine 4) Elevated Lactate -Due to #1; hydrate and recheck FENA -LR@100 -PRN replete -NPO until wakes up -Fall precautions Full Code
--- NOTE | 2018-05-29 20:02 | HP ---
CHIEF COMPLAINT: alcohol intoxication, fall PCP: none HISTORY OF PRESENT ILLNESS: 67 year old male with a hx of hypertension, cutaneous lupus, and alcohol abuse was brought in by ambulance s/p fall at home. According to patient's (who was not at home), the patient drank 2 bottles of Vodka and fell, hitting his head. Patient became agitated in ED, tried getting out of bed and fell, hitting both knees but denied pain afterwards. He was given ativan and haldol in the ED. Patient is unable to be aroused for further history, and so the history was obtained from patient's and ED. Patient's reports that he only drinks on weekends and not during the week while at work. Denies ever having seizures from alcohol but he has been through detox in the past. Patient' s wants the patient to get detox while in the hospital and may want to get outpatient detox. CT of the head/neck was negative in ED. ER course was notable for: (1) negative head CT (2) Alc level > 300 PAST MEDICAL HISTORY: Cutaneous Lupus, EtOH abuse, HTN PAST SURGICAL HISTORY: R shoulder fracture, prostate surgery, L inguinal hernia repair Social History: Smoking: every day smoker Alcohol: currently every weekend Drugs: none Family History: Mother: heart attack Father: never knew father Allergies No Known Allergies Allergy (Verified 12/16/17 20:42) HOME MEDICATIONS: Home Medications Medication Instructions Recorded NK [No Known Home Medication] 05/29/18 REVIEW OF SYSTEMS Unable to obtain due to mental status PHYSICAL EXAMINATION Vital Signs - 24 hr 05/29/18 05/29/18 05/29/18 15:05 15:20 17:00 Temperature 97.2 F L 97.8 F Pulse Rate 86 78 Pulse Rate [ 78 93 H Apical] Respiratory 16 18 16 Rate Blood Pressure 127/76 108/68 Blood Pressure 108/68 99/63 [Left Arm] O2 Sat by Pulse 95 100 98 Oximetry (%) GENERAL: A&Ox0, breathing normally but unable to arouse HEAD: wrapped in zana, several small lacerations non-bleeding noted on forehead and top of scalp EYES: PERRLA, EOMI ENT: Dry mucus membranes LUNGS: CTA, no wheezes HEART: RRR, no murmurs ABDOMEN: Soft, nontender, BS present MUSCULOSKELETAL: No CVA Tenderness EXTREMITIES: 2+ pulses, no edema. NEUROLOGICAL: unable to assess due to mental status Laboratory Results - last 24 hr 05/29/18 05/29/18 05/29/18 16:05 16:05 16:05 WBC 8.1 RBC 5.08 Hgb 15.5 Hct 45.4 D MCV 89.4 MCH 30.4 MCHC 34.1 RDW 15.5 Plt Count 198 D MPV 7.6 Absolute Neuts (auto) 5.3 Neutrophils % 65.6 Lymphocytes % 24.4 Monocytes % 8.5 Eosinophils % 0.7 Basophils % 0.8 Nucleated RBC % 0 PT with INR 10.80 INR 0.92 Sodium 143 Potassium 4.3 Chloride 112 H Carbon Dioxide 22 Anion Gap 9 BUN 18 Creatinine 1.0 Creat Clearance w eGFR > 60 POC Glucometer Random Glucose 83 Lactic Acid Calcium 9.0 Phosphorus 3.6 Magnesium 2.5 H Total Bilirubin 0.3 AST 34 ALT 46 Alkaline Phosphatase 88 Creatine Kinase 149 Troponin I < 0.02 Total Protein 7.6 Albumin 4.2 Alcohol, Quantitative 347.6 H 05/29/18 05/29/18 16:05 16:22 WBC RBC Hgb Hct MCV MCH MCHC RDW Plt Count MPV Absolute Neuts (auto) Neutrophils % Lymphocytes % Monocytes % Eosinophils % Basophils % Nucleated RBC % PT with INR INR Sodium Potassium Chloride Carbon Dioxide Anion Gap BUN Creatinine Creat Clearance w eGFR POC Glucometer 77.23837 Random Glucose Lactic Acid 2.2 H* Calcium Phosphorus Magnesium Total Bilirubin AST ALT Alkaline Phosphatase Creatine Kinase Troponin I Total Protein Albumin Alcohol, Quantitative ASSESSMENT/PLAN: 67 year old male with a history of cutaneous lupus, hypertension, and ethanol abuse presents to the hospital s/p fall and admitted for alcohol detox #Ethanol Abuse: patient drank 2 small bottles of vodka -banana bag -thiamine -folate -ativan IV 2mg in AM -neurochecks #s/p fall: CT head was negative -pain control -local wound care #Elevated lactic acid: level 2.2 -hydrate and repeat level #FEN NS @ 83cc/hr replete lytes if necessary in AM regular diet in AM #Prophylaxis lovenox #Disposition: -med surg Visit type - Emergency Visit Emergency Visit: Yes ED Registration Date: 05/29/18 Care time: The patient presented to the Emergency Department on the above date and was hospitalized for further evaluation of their emergent condition. - New Patient This patient is new to me today: Yes Date on this admission: 05/29/18 - Critical Care Critical Care patient: No
[2018-05-29] MEDS ORDERED: LORazepam 1 MG TABLET PO SCH (21:30)
[2018-05-29] MEDS ORDERED: LORazepam 2 MG/ML SDV VIAL IVPUSH PRN (21:31)
[2018-05-30 03:08] LABS: URINE APPEARANCE CLEAR; URINE BILIRUBIN NEGATIVE (<2.0 mg/dL); URINE COLOR YELLOW; URINE GLUCOSE (UA) NEGATIVE (NEGATIVE); URINE KETONE NEGATIVE (NEGATIVE); URINE LEUK ESTERASE NEGATIVE (NEGATIVE); URINE NITRITE NEGATIVE (NEGATIVE); URINE PROTEIN NEGATIVE (NEGATIVE); URINE UROBILINOGEN NEGATIVE mg/dL (0.2-1.0)
[2018-05-30 03:12] LABS: URINE MUCUS RARE
[2018-05-30 03:21] LABS: COCAINE, UR NEGATIVE ng/ml (CUTOFF=300); METHADONE, UR NEGATIVE ng/ml (CUTOFF=300); OPIATES, URI NEGATIVE ng/ml (CUTOFF=300); PHENCYCLIDINE,URINE NEGATIVE ng/ml (CUTOFF=25); URINE AMPHETAMINES NEGATIVE ng/ml (CUTOFF=500); URINE BARBITURATES NEGATIVE ng/ml (CUTOFF=200); URINE BENZODIAZEPINES NEGATIVE ng/ml (CUTOFF=200)
[2018-05-30 06:27] LABS: HEMATOCRIT 40.4 % (35.4-49); HEMOGLOBIN 13.8 GM/dL (11.7-16.9); MCH 30.7 pg (25.7-33.7); MCHC 34.3 g/dl (32.0-35.9); MEAN CELL VOLUME 89.6 fl (80-96); MEAN PLT VOLUME 7.9 fl (7.5-11.1); PLATELET COUNT 190 K/MM3 (134-434); RBC 4.51 M/mm3 (4.00-5.60); RDW 15.2 % (11.9-15.9); WHITE BLOOD COUNT 8.3 K/mm3 (4.0-10.0)
[2018-05-30 06:45] VITALS: TEMP 98.5
[2018-05-30 06:53] VITALS: BP 148/75; PULSE 78
[2018-05-30 06:58] LABS: ALBUMIN 3.3 g/dl (3.4-5.0); ALK PHOS 76 U/L (45-117); ANION GAP 7 MMOL/L (8-16); BILIRUBIN,TOTAL 0.4 mg/dL (0.2-1); BLOOD UREA NITROGEN 12 mg/dL (7-18); CALCIUM 7.2 mg/dL (8.5-10.1); CHLORIDE 116 mmol/L (98-107); CO2 22 mmol/L (21-32); CREATININE 0.7 mg/dL (0.55-1.3); GLUCOSE,RANDOM 60 mg/dL (74-106); PHOSPHOROUS 1.8 mg/dL (2.5-4.9); POTASSIUM 4.2 mmol/L (3.5-5.1); SGOT/AST 29 U/L (15-37); SGPT/ALT 36 U/L (13-61); SODIUM 144 mmol/L (136-145); TOT PROT 6.2 g/dl (6.4-8.2)
[2018-05-30] MEDS ORDERED: LORazepam 1 MG TABLET PO PRN (10:00)
[2018-05-30] MEDS ORDERED: ENOXAPARIN NA (PORCINE) 40 MG/0.4 ML DISP.SYRIN SQ SCH (10:00)
[2018-05-30] MEDS ORDERED: FOLIC ACID 1 MG TABLET (FP) PO SCH (10:00)
[2018-05-30] MEDS ORDERED: LORazepam 1 MG TABLET PO SCH (10:00)
[2018-05-30] MEDS: THIAMINE HCL 200 MG/2 ML VIAL IVPB SCH (11:02)
--- NOTE | 2018-05-30 11:13 | EKG ---
Test Reason : Blood Pressure : / mmHG Vent. Rate : 093 BPM Atrial Rate : 093 BPM P-R Int : 182 ms QRS Dur : 088 ms QT Int : 344 ms P-R-T Axes : 050 050 028 degrees QTc Int : 427 ms NORMAL SINUS RHYTHM NONSPECIFIC T WAVE ABNORMALITY ABNORMAL ECG WHEN COMPARED WITH ECG OF 16-DEC-2017 19:23, NONSPECIFIC T WAVE ABNORMALITY NOW EVIDENT IN ANTEROLATERAL LEADS Confirmed by KHADAR BALTAZAR MD ([id number] on 05/30/2018 11:13:15 AM Referred By: Confirmed By:KHADAR BALTAZAR MD
--- NOTE | 2018-05-30 15:30 | PN ---
Progress Note (short form) - Note Progress Note: Subjective: seen at 9 am no fever or chills. No abd pain, no JONAS , no change in vision . Objective: Vital Signs: Last Vital Signs Temp Pulse Resp BP Pulse Ox 98.5 F 78 18 148/75 97 05/30/18 06:44 05/30/18 06:52 05/30/18 06:52 05/30/18 06:52 05/30/18 06:52 Laboratory Results - last 24 hr 05/29/18 05/29/18 05/29/18 16:05 16:05 16:05 WBC 8.1 RBC 5.08 Hgb 15.5 Hct 45.4 D MCV 89.4 MCH 30.4 MCHC 34.1 RDW 15.5 Plt Count 198 D MPV 7.6 Absolute Neuts (auto) 5.3 Neutrophils % 65.6 Lymphocytes % 24.4 Monocytes % 8.5 Eosinophils % 0.7 Basophils % 0.8 Nucleated RBC % 0 PT with INR INR Sodium 143 Potassium 4.3 Chloride 112 H Carbon Dioxide 22 Anion Gap 9 BUN 18 Creatinine 1.0 Creat Clearance w eGFR > 60 POC Glucometer Random Glucose 83 Lactic Acid Calcium 9.0 Phosphorus 3.6 Magnesium 2.5 H Total Bilirubin 0.3 AST 34 ALT 46 Alkaline Phosphatase 88 Creatine Kinase 149 Troponin I < 0.02 Total Protein 7.6 Albumin 4.2 Urine Color Urine Appearance Urine pH Ur Specific [place] Urine Protein Urine Glucose (UA) Urine Ketones Urine Blood Urine Nitrite Urine Bilirubin Urine Urobilinogen Ur Leukocyte Esterase Urine WBC (Auto) Urine RBC (Auto) Urine Mucus Opiates Screen Methadone Screen Barbiturate Screen Phencyclidine Screen Ur Amphetamines Screen MDMA (Ecstasy) Screen Benzodiazepines Screen Cocaine Screen U Marijuana (THC) Screen Alcohol, Quantitative 347.6 H Blood Type O POSITIVE Antibody Screen Positive H Antibody Identification Anti-k Antigen Identification No Result Required. 05/29/18 05/29/18 05/29/18 16:05 16:05 16:22 WBC RBC Hgb Hct MCV MCH MCHC RDW Plt Count MPV Absolute Neuts (auto) Neutrophils % Lymphocytes % Monocytes % Eosinophils % Basophils % Nucleated RBC % PT with INR 10.80 INR 0.92 Sodium Potassium Chloride Carbon Dioxide Anion Gap BUN Creatinine Creat Clearance w eGFR POC Glucometer [id number] Random Glucose Lactic Acid 2.2 H* Calcium Phosphorus Magnesium Total Bilirubin AST ALT Alkaline Phosphatase Creatine Kinase Troponin I Total Protein Albumin Urine Color Urine Appearance Urine pH Ur Specific [place] Urine Protein Urine Glucose (UA) Urine Ketones Urine Blood Urine Nitrite Urine Bilirubin Urine Urobilinogen Ur Leukocyte Esterase Urine WBC (Auto) Urine RBC (Auto) Urine Mucus Opiates Screen Methadone Screen Barbiturate Screen Phencyclidine Screen Ur Amphetamines Screen MDMA (Ecstasy) Screen Benzodiazepines Screen Cocaine Screen U Marijuana (THC) Screen Alcohol, Quantitative Blood Type Antibody Screen Antibody Identification Antigen Identification 05/29/18 05/30/18 05/30/18 19:45 02:52 02:52 WBC RBC Hgb Hct MCV MCH MCHC RDW Plt Count MPV Absolute Neuts (auto) Neutrophils % Lymphocytes % Monocytes % Eosinophils % Basophils % Nucleated RBC % PT with INR INR Sodium Potassium Chloride Carbon Dioxide Anion Gap BUN Creatinine Creat Clearance w eGFR POC Glucometer Random Glucose Lactic Acid 1.3 Calcium Phosphorus Magnesium Total Bilirubin AST ALT Alkaline Phosphatase Creatine Kinase Troponin I Total Protein Albumin Urine Color Yellow Urine Appearance Clear Urine pH 5.0 Ur Specific [place] 1.014 Urine Protein Negative Urine Glucose (UA) Negative Urine Ketones Negative Urine Blood 1+ H Urine Nitrite Negative Urine Bilirubin Negative Urine Urobilinogen Negative Ur Leukocyte Esterase Negative Urine WBC (Auto) <1 Urine RBC (Auto) 1 Urine Mucus Rare Opiates Screen Negative Methadone Screen Negative Barbiturate Screen Negative Phencyclidine Screen Negative Ur Amphetamines Screen Negative MDMA (Ecstasy) Screen Negative Benzodiazepines Screen Negative Cocaine Screen Negative U Marijuana (THC) Screen Negative Alcohol, Quantitative Blood Type Antibody Screen Antibody Identification Antigen Identification 05/30/18 05/30/18 05:15 05:15 WBC 8.3 RBC 4.51 Hgb 13.8 Hct 40.4 MCV 89.6 MCH 30.7 MCHC 34.3 RDW 15.2 Plt Count 190 MPV 7.9 Absolute Neuts (auto) Neutrophils % Lymphocytes % Monocytes % Eosinophils % Basophils % Nucleated RBC % PT with INR INR Sodium 144 Potassium 4.2 Chloride 116 H Carbon Dioxide 22 Anion Gap 7 L BUN 12 Creatinine 0.7 Creat Clearance w eGFR > 60 POC Glucometer Random Glucose 60 L Lactic Acid Calcium 7.2 L Phosphorus 1.8 L Magnesium 2.0 Total Bilirubin 0.4 AST 29 ALT 36 Alkaline Phosphatase 76 Creatine Kinase Troponin I Total Protein 6.2 L Albumin 3.3 L Urine Color Urine Appearance Urine pH Ur Specific [place] Urine Protein Urine Glucose (UA) Urine Ketones Urine Blood Urine Nitrite Urine Bilirubin Urine Urobilinogen Ur Leukocyte Esterase Urine WBC (Auto) Urine RBC (Auto) Urine Mucus Opiates Screen Methadone Screen Barbiturate Screen Phencyclidine Screen Ur Amphetamines Screen MDMA (Ecstasy) Screen Benzodiazepines Screen Cocaine Screen U Marijuana (THC) Screen Alcohol, Quantitative Blood Type Antibody Screen Antibody Identification Antigen Identification Physical Exam: NAD. Awake, alert oriented x 3. aware of his medical condition and answers all questions appropriately HEENT: scalp lacerations with dry blood and jimi at two different sites. L periorbital bruising and edema , round equa pupils, with clear conjunctivae. No facial droop. tongue at mid line , round equal pupils, reactive to light . thick scaly and hyperpigmented skin over nose and suborbital areas. Cv: RRR, no MRG Lungs: CATB Ext: no edema or erythema .minimal fine tremor in R hand. Abd: sot, NT, ND , NL BS. Assessment/Plan: 67 y/o man with h/o ALcohol abuse, and untreated hypertension, and cutaneous Lupus, who was brought here after a fall and was found to have alcohol intoxication with head lacerations 1- Alcohol intoxication , resolved. .now awake, and oriented with no signs of withdrawal 2- Fall. 3- Scalp laceration 4- h/o HTN plan: d/w patient staying in hospital for detox, and monitoring of electrolytes. also transfer to [facility] was discussed. He declined treatment and decided to leave AMA . He declined I speak to his . He was made aware of the risks associated with his decision : fall, withdrawal, seizures, and even . He is capable of making decisions at this point . and can leave AMA Visit type - Emergency Visit Emergency Visit: Yes ED Registration Date: 05/29/18 Care time: The patient presented to the Emergency Department on the above date and was hospitalized for further evaluation of their emergent condition. - New Patient This patient is new to me today: Yes Date on this admission: 05/30/18 - Critical Care Critical Care patient: No
--- NOTE | 2018-05-31 15:10 | DS ---
Physical Exam: HOSPITAL COURSE: Date of Admission:05/29/18 67 year old male with a hx of hypertension, cutaneous lupus, and alcohol abuse was brought in by ambulance s/p fall at home. According to patient's (who was not at home), the patient drank 2 bottles of Vodka and fell, hitting his head. Patient became agitated in ED, tried getting out of bed and fell, hitting both knees but denied pain afterwards. He was given ativan and haldol in the ED. Patient Patient's reports that he only drinks on weekends and not during the week while at work. Denies ever having seizures from alcohol but he has been through detox in the past. Patient's wants the patient to get detox while in the hospital and may want to get outpatient detox. CT of the head /neck was negative in ED. While admitted for detox, patient voiced wanting to leave AMA. He did so on 05/31/18. Date of Discharge: 05/31/18 Minutes to complete discharge: 35 Discharge Summary Reason For Visit: ALCOHOLIC INTOXICATION / FALL / LACTIC ACIDOSIS Condition: Stable - Instructions Diet, Activity, Other Instructions: Please return to the emergency department with any new or worsening symptoms or concerns. Please follow up with your primary care physician within 72 hours. Disposition: AGAINST MEDICAL ADVICE - Home Medications Comprehensive Discharge Medication List: Ambulatory Orders NK [No Known Home Medication] 05/29/18 This patient is new to me today: No Emergency Visit: No Critical Care patient: No - Discharge Referral Referred to [facility] Med P.C.: No
[2018-06-02] MEDS ORDERED: LORazepam 1 MG TABLET PO PRN (10:00)
[2018-06-02] MEDS ORDERED: LORazepam 1 MG TABLET PO SCH (21:30)
== END 2018-05-30 11:22 | disposition left against medical advice (07) | DRG 894 ==
LOC: JER 14:33 → JERBED 18:49
PROVIDERS: ADMIT Internal Medicine; ATTEND Internal Medicine
PROC: HZ2ZZZZ Detoxification Services for Substance Abuse Treatment (ICD-10-PCS; principal; 2018-05-29)
DX: F10.229 Alcohol dependence with intoxication, unspecified (principal); E87.2 Acidosis; Y90.8 Blood alcohol level of 240 mg/100 ml or more; R45.1 Restlessness and agitation; I10 Essential (primary) hypertension; S05.12XA Contusion of eyeball and orbital tissues, left eye, initial encounter; S01.01XA Laceration without foreign body of scalp, initial encounter; M32.9 Systemic lupus erythematosus, unspecified; W18.39XA Other fall on same level, initial encounter; Y92.098 Other place in other non-institutional residence as the place of occurrence of the external cause; F17.210 Nicotine dependence, cigarettes, uncomplicated
CPT/HCPCS: 36415; 70450-TC; 71045-TC-FY; 72125-TC; 80053; 80307; 81003; 81015; 82550; 82962; 83605; 83735; 84100; 84484; 85025; 85027; 85610; 86850; 86870; 86900; 86901; 86902; 87086; 93005; 93010; 99285-25; J7030

== ENCOUNTER 2018-06-01 10:09 | Inpatient (IN) | payer OTHER ==
[2018-06-01 12:24] VITALS: BMI 21.9
--- NOTE | 2018-06-01 13:19 | HP ---
CIWA Score - Admission Criteria [facility]ASAS Guidelines: Admission for Medically Managed Detox: Requires at least one of the followin. CIWA greater than 12 2. Seizures within the past 24 hours 3. Delirium tremens within the past 24 hours 4. Hallucinations within the past 24 hours 5. Acute intervention needed for co occurring medical disorder 6. Acute intervention needed for co occurring psychiatric disorder 7. Severe withdrawal that cannot be handled at a lower level of care (continued vomiting, continued diarrhea, abnormal vital signs) requiring intravenous medication and/or fluids 8. Admission ROS [facility] - HPI Allergies/Adverse Reactions: Allergies Allergy/AdvReac Type Severity Reaction Status Date / Time No Known Allergies Allergy Verified 06/01/18 14:52 History of Present Illness: here requesting rehab from etoh use , reports 1/2 pint on weekends , latest use last Thursday , reports fall at home while intoxicated on wet floor went to [facility] ER , no frx , referred to this facility . Denies current symptoms denies tremors, seizures , blackouts . First age of use 31' s prior tx episode December 2017 at this facility . Goes to outpt program at this facility [facility], goes to AA at [facility] . + driving . 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 Exam Limitations: No Limitations - Ebola screening Have you traveled outside of the country in the last 21 days: No Have you had contact with anyone from an Ebola affected area: No Have you been sick,other than usual withdrawal symptoms: No Do you have a fever: No - Review of Systems Constitutional: See HPI EENT: reports: Hearing Loss, Other (reading glasses , denies dysphagia) Respiratory: reports: No Symptoms reported Cardiac: reports: No Symptoms Reported GI: reports: No Symptoms Reported : reports: No Symptoms Reported Musculoskeletal: reports: No Symptoms Reported Integumentary: reports: See HPI Neuro: reports: No Symptoms reported Endocrine: reports: No Symptoms Reported Psychiatric: reports: Orientated x3 Patient History - Patient Medical History Hx Anemia: No Hx Asthma: No Hx Chronic Obstructive Pulmonary Disease (COPD): No Hx Cancer: No Hx Cardiac Disorders: No Hx Congestive Heart Failure: No Hx Hypertension: Yes (on lisinopril ) Hx Hypercholesterolemia: No Hx Pacemaker: No HX Cerebrovascular Accident: No Hx Seizures: No Hx Dementia: No Hx Diabetes: No Hx Gastrointestinal Disorders: No Hx Liver Disease: No Hx Genitourinary Disorders: No Hx Sexually Transmitted Disorders: No Hx Renal Disease (ESRD): No Hx Thyroid Disease: No Hx Human Immunodeficiency Virus (HIV): No Hx Hepatitis C: No Hx Depression: Yes Hx Suicide Attempt: No Hx Bipolar Disorder: No Hx Schizophrenia: No - Patient Surgical History Past Surgical History: Yes Hx Neurologic Surgery: No Hx Cataract Extraction: No Hx Cardiac Surgery: No Hx Lung Surgery: No Hx Breast Surgery: No Hx Breast Biopsy: No Hx Abdominal Surgery: No Hx Appendectomy: No Hx Cholecystectomy: No Hx Genitourinary Surgery: No Hx Section: No Hx Orthopedic Surgery: Yes (rt shouler fx at age 24yrs) Other Surgical History: PROSTATE SURGERY-?PROSTATECTOMY / left inguinal hernia repair 5 yrs ago Anesthesia Reaction: No - PPD History Date: 06/22/17 - Smoking Cessation Smoking history: Current every day smoker Have you smoked in the past 12 months: Yes Aproximately how many cigarettes per day: 20 Cigars Per Day: 0 Hx Chewing Tobacco Use: No (Unable to assess at this time) Initiated information on smoking cessation: No - Substances Abused Alcohol-vodka Route: Oral Frequency: 1-2 times per week Amount used: 1/2 pt. Age of first use: 26 Date of Last Use: 05/29/18 Family Disease History - Family Disease History Family History: Denies Admission Physical Exam [facility] - Vital Signs Vital Signs: Vital Signs - 24 hr 06/01/18 12:14 Temperature 98.1 F Pulse Rate 85 Respiratory 18 Rate Blood Pressure 151/100 - Physical General Appearance: Yes: No Apparent Distress, Disheveled HEENTM: Yes: EOMI, Orbits, Other (upper and lower dentures jimi on scalp rash on nose and forehead - reports from lupus, has had numerous topical tx x 20 years , states no meds .) Respiratory: Yes: Chest Non-Tender, Lungs Clear, Normal Breath Sounds Neck: Yes: No masses,lesions,Nodules, Trachea in good position Breast: Yes: Breast Exam Deferred Cardiology: Yes: Regular Rhythm, Regular Rate, S1, S2 Abdominal: Yes: Non Tender, Soft Genitourinary: Yes: Within Normal Limits Back: Yes: Normal Inspection Musculoskeletal: Yes: full range of Motion, Gait Steady Extremities: Yes: Normal Inspection, Non-Tender Neurological: Yes: Fully Oriented, Alert, Motor Strength 5/5 Integumentary: Yes: Rash (nose and forehead, scalp laceration w/ jimi) - Diagnostic (1) Alcohol dependence Current Visit: No Status: Chronic Qualifiers: Substance use status: uncomplicated Qualified Code(s): F10.20 - Alcohol dependence, uncomplicated (2) HTN (hypertension) Current Visit: No Status: Chronic Qualifiers: Hypertension type: essential hypertension Qualified Code(s): I10 - Essential (primary) hypertension (3) Nicotine dependence Current Visit: No Status: Chronic Qualifiers: Nicotine product type: cigarettes Substance use status: uncomplicated Qualified Code(s): F17.210 - Nicotine dependence, cigarettes, uncomplicated BHS Breath Alcohol Content Breath Alcohol Content: 0 Urine Drug Screen - Results Drug Screen Negative: No Urine Drug Screen Results: BZO-Benzodiazepines Inpatient Rehab Admission - Initial Determination Are CD services needed?: Yes Free of communicable disease: Yes Not in need of hospitalization: Yes - Rehab Admission Criteria Previous failed treatment: Yes Poor recovery environment: No Comorbidities: No Lacks judgement: Yes Patient is meeting Inpatient Rehab admission criteria:: Yes
[2018-06-01] MEDS ORDERED: MAGNESIUM HYDROX 2400MG/30ML ORAL SUSPENSION 30 ML CUP PO PRN (13:31)
[2018-06-01] MEDS ORDERED: NICOTINE POLACRILEX 2 MG GUM BC PRN (13:31)
[2018-06-01] MEDS ORDERED: MAGNESIUM CITRATE 300 ML BOTTLE PO PRN (13:31)
[2018-06-01] MEDS ORDERED: IBUPROFEN 400 MG TABLET (FP) PO PRN (13:31)
[2018-06-01] MEDS ORDERED: ACETAMINOPHEN 325 MG TABLET (FP) PO PRN (13:31)
[2018-06-01] MEDS ORDERED: guaiFENesin/D-METHORPHAN HB 10 ML UNIT-DOSE CUPS PO PRN (13:31)
[2018-06-01] MEDS ORDERED: MENTHOL/PHENOL 1 EACH UD MM PRN (13:31)
[2018-06-01] MEDS ORDERED: MAG HYDROX/AL HYDROX/SIMETH 30 ML UNIT-DOSE CUP PO PRN (13:31)
[2018-06-01] MEDS ORDERED: P-EPHED 60MG/TRIPROLIDI 2.5MG TABLET PO PRN (13:31)
--- NOTE | 2018-06-01 15:18 | PN ---
[facility] Progress Note Note: patient has 8 scalp jimi
[2018-06-01] MEDS: BACITRACIN/POLYMYXIN B SULFATE 15 GM TUBE TP SCH ×2 (19:01→21:04)
[2018-06-01] MEDS: MELATONIN 5 MG TABLETS PO PRN (21:04)
[2018-06-01] MEDS: THIAMINE HCL 100 MG TABLET (FP) PO SCH (21:04)
[2018-06-01 23:50] LABS: URINE APPEARANCE CLEAR; URINE BILIRUBIN NEGATIVE (<2.0 mg/dL); URINE COLOR YELLOW; URINE GLUCOSE (UA) NEGATIVE (NEGATIVE); URINE KETONE TRACE (NEGATIVE); URINE LEUK ESTERASE NEGATIVE (NEGATIVE); URINE NITRITE NEGATIVE (NEGATIVE); URINE PROTEIN NEGATIVE (NEGATIVE); URINE UROBILINOGEN NEGATIVE mg/dL (0.2-1.0)
[2018-06-02 00:32] LABS: URINE MUCUS RARE
--- NOTE | 2018-06-02 09:20 | CONSULT ---
[facility] Psychiatric Consult - Data Date of interview: 06/02/18 Admission source: Sadiaezequiel Luu Identifying data: Mr Angelo is a 67 years old [place]born male, father of 2 daughters, unemployed, living with [facility] treatment for alcohol Substance Abuse History: Reports history of alcohol use. Refer to addiction coiunselor's summary for further information Medical History: Significant for hypertension, dyslipidemia, lupus erythematosus , history of surgeries(prostatectomy for cancer, left inguinal hernia repair 5 years ago, fracture right shoulder at age 24). Smokes cigarettes 1ppd Psychiatric History: Reports that 5-6 months ago after losing his job, he saw his primary care physician who prescribed him Prozac 10 mg po daily for depression. Approximately 3 weeks ago he saw a psychiatrist at [facility] who discontinued Prozac and prescribed a medication he has to take twice a day. He does not know the name of that medication but he believes that is a medication for depression. 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 External medication list shows script for Fluoxetine 10 mg#30 filled on 11/19/17 and Venlafazine ER 37.5 mg BID and Acamprosate 666mg TID filled on 11/26/17. Denies previous psychiatric hospitalization or suicidal attempt. At present, reports feeling and sleeping well Physical/Sexual Abuse/Trauma History: Denies history of emotional, physical or sexual abuse as well as DV relationship. Additional Comment: Denies criminal history
[2018-06-02] MEDS: PRENATAL VITAMINS W/ FOLIC ACID TABLET (FP) PO SCH (10:04)
[2018-06-02] MEDS: BACITRACIN/POLYMYXIN B SULFATE 15 GM TUBE TP SCH ×2 (10:05→22:01)
[2018-06-02 12:18] LABS: HEMATOCRIT 45.7 % (35.4-49); HEMOGLOBIN 15.6 GM/dL (11.7-16.9); MCH 30.7 pg (25.7-33.7); MCHC 34.3 g/dl (32.0-35.9); MEAN CELL VOLUME 89.8 fl (80-96); MEAN PLT VOLUME 8.5 fl (7.5-11.1); PLATELET COUNT 211 K/MM3 (134-434); RBC 5.09 M/mm3 (4.00-5.60); RDW 15.6 % (11.9-15.9); WHITE BLOOD COUNT 5.7 K/mm3 (4.0-10.0)
[2018-06-02 12:25] LABS: ALBUMIN 4.2 g/dl (3.4-5.0); ALK PHOS 82 U/L (45-117); ANION GAP 7 MMOL/L (8-16); BILIRUBIN,TOTAL 0.5 mg/dL (0.2-1); BLOOD UREA NITROGEN 18 mg/dL (7-18); CHLORIDE 110 mmol/L (98-107); CO2 24 mmol/L (21-32); CREATININE 0.8 mg/dL (0.55-1.3); GLUCOSE,RANDOM 52 mg/dL (74-106); POTASSIUM 4.4 mmol/L (3.5-5.1); SGOT/AST 30 U/L (15-37); SGPT/ALT 48 U/L (13-61); SODIUM 141 mmol/L (136-145); TOT PROT 7.4 g/dl (6.4-8.2)
--- NOTE | 2018-06-02 14:33 | PN ---
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 PT REPORTS HE HAS LUPUS AND HAS THE LESIONS ON HIS NOSE AND FOREHEAD IN THE PAST WITH MULTIPLE TREATMENT EPISODES. PT STATES HE DOES NOT KNOW NAME OF MEDICATION AND NAME OF ORDERING DOCTOR WHO HE SAYS IS LOCATED ON [facility]. [facility] AND SPOKE TO CON [facility] WHO GAVE PHONE NUMBER OF PROVIDERS ON LOCATION. CALLED AND LEFT MESSAGE WITH TIMBER ESTIMATOR SABAS AT [facility] ON [facility] PH:[phone]. DR. HANNA CALLED ME BACK TO INFORM SHE WORKS WITH DR. DEEPAK NIX/DR.CHRISTOPHER YOU WHO HAVE TAKEN CARE OF THIS PATIENT'S DERMATOLOGY ISSUES IN THE PAST. DR. HANNA STATES PT WAS ON TOPICORT 0.25% SPRAY TO SCAP AND CUTIVATE CREAM BID TO NOSE AREA. BOTH ARE NONFORMULARY HERE. SHE RECOMMENDED TRIAMCINOLONE CREAM 0.1% BID X 5 DAYS WHICH PATIENT HAS USED IN THE PAST CAN BE GIVEN IF THESE ARE NOT AVAILABLE. PT HAS TONO ON THE TOP PART OF HIS HEAD S/P FALL ON 05/29/18-05/30/18 ADMISSION AT [facility] DUE TO FALL. Vital Signs - 8 hr 06/02/18 06/02/18 06:57 10:00 Temperature 98.2 F Pulse Rate 74 70 Respiratory 18 Rate Blood Pressure 110/78 120/66 Laboratory Tests 06/01/18 06/02/18 06/02/18 22:44 10:00 10:20 WBC 5.7 RBC 5.09 Hgb 15.6 Hct 45.7 MCV 89.8 MCH 30.7 MCHC 34.3 RDW 15.6 Plt Count 211 MPV 8.5 Sodium 141 Potassium 4.4 Chloride 110 H Carbon Dioxide 24 Anion Gap 7 L BUN 18 Creatinine 0.8 Creat Clearance w eGFR > 60 Random Glucose 52 L Calcium 10.0 Total Bilirubin 0.5 AST 30 ALT 48 Alkaline Phosphatase 82 Total Protein 7.4 Albumin 4.2 Urine Color Yellow Urine Appearance Clear Urine pH 5.0 Ur Specific [place] 1.024 Urine Protein Negative Urine Glucose (UA) Negative Urine Ketones Trace H Urine Blood 1+ H Urine Nitrite Negative Urine Bilirubin Negative Urine Urobilinogen Negative Ur Leukocyte Esterase Negative Urine WBC (Auto) 2 Urine RBC (Auto) 36 Urine Mucus Rare NAD PLAN:TRIAMCINOLONE CREAM 1% APPLY TO LESIONS ON NOSE AND FOREHEAD.
[2018-06-02] MEDS ORDERED: ASPIRIN COATED 81 MG TABLET.EC PO SCH (14:45)
[2018-06-02] MEDS: ASPIRIN COATED 81 MG TABLET.EC PO SCH (16:51)
[2018-06-02] MEDS: THIAMINE HCL 100 MG TABLET (FP) PO SCH (21:13)
[2018-06-02] MEDS: MELATONIN 5 MG TABLETS PO PRN (21:15)
[2018-06-02] MEDS: TRIAMCINOLONE ACET 0.1% CREAM 15 GM TUBE TP SCH (22:01)
[2018-06-03 06:33] VITALS: BP 132/73; PULSE 62; TEMP 98.3
[2018-06-03] MEDS: PRENATAL VITAMINS W/ FOLIC ACID TABLET (FP) PO SCH (09:32)
[2018-06-03] MEDS: ASPIRIN COATED 81 MG TABLET.EC PO SCH (09:32)
[2018-06-03] MEDS: TRIAMCINOLONE ACET 0.1% CREAM 15 GM TUBE TP SCH (09:34)
[2018-06-03] MEDS: BACITRACIN/POLYMYXIN B SULFATE 15 GM TUBE TP SCH (09:34)
--- NOTE | 2018-06-03 12:00 | PN ---
[facility] Progress Note Note: MEDICAL DISCHARGE NOTES: PT STATES TO STAFF AND THIS [facility] UNDERWRITER THAT HE IS LEAVING TREATMENT BECAUSE "I HAVE TO TAKE CARE OF MY BUSINESS" WHEN ASKED THE REASON FOR LEAVING. PT WAS SEEN ALL DRESSED AND READY TO GO. PT IS REFERRED TO [facility] FOR CD AFTERCARE TREATMENT. PT ALSO REPORTS HIS PMD IS DR. FREDDY MCLAUGHLIN AND WAS ENCOURAGED TO SEE PCP SOON HE CAN AFTER DISCHARGE. PT DECLINED COURTESY RX FOR ASPIRIN STATING HE WILL GET IT FROM HIS PHARMACY. Vital Signs - 8 hr 06/03/18 06:32 Temperature 98.3 F Pulse Rate 62 Respiratory 18 Rate Blood Pressure 132/73 Laboratory Tests 06/01/18 06/02/18 06/02/18 22:44 10:00 10:00 WBC 5.7 RBC 5.09 Hgb 15.6 Hct 45.7 MCV 89.8 MCH 30.7 MCHC 34.3 RDW 15.6 Plt Count 211 MPV 8.5 Sodium Potassium Chloride Carbon Dioxide Anion Gap BUN Creatinine Creat Clearance w eGFR Random Glucose Calcium Total Bilirubin AST ALT Alkaline Phosphatase Total Protein Albumin Urine Color Yellow Urine Appearance Clear Urine pH 5.0 Ur Specific [place] 1.024 Urine Protein Negative Urine Glucose (UA) Negative Urine Ketones Trace H Urine Blood 1+ H Urine Nitrite Negative Urine Bilirubin Negative Urine Urobilinogen Negative Ur Leukocyte Esterase Negative Urine WBC (Auto) 2 Urine RBC (Auto) 36 Urine Mucus Rare RPR Titer Nonreactive 06/02/18 10:20 WBC RBC Hgb Hct MCV MCH MCHC RDW Plt Count MPV Sodium 141 Potassium 4.4 Chloride 110 H Carbon Dioxide 24 Anion Gap 7 L BUN 18 Creatinine 0.8 Creat Clearance w eGFR > 60 Random Glucose 52 L Calcium 10.0 Total Bilirubin 0.5 AST 30 ALT 48 Alkaline Phosphatase 82 Total Protein 7.4 Albumin 4.2 Urine Color Urine Appearance Urine pH Ur Specific [place] Urine Protein Urine Glucose (UA) Urine Ketones Urine Blood Urine Nitrite Urine Bilirubin Urine Urobilinogen Ur Leukocyte Esterase Urine WBC (Auto) Urine RBC (Auto) Urine Mucus RPR Titer NAD MEDICALLY STABLE PLAN:FOLLOW UP WITH YOUR CLEAN RICE BROKER [facility] [address] TODAY DISCUSSED (SEE NOTE OF 06/02/18). FOLLOW UP WITH YOUR PMD DR. FREDDY MCLAUGHLIN PH: [phone] FOR MEDICAL MANAGEMENT OF YOUR CORMOBID CONDITIONS IN 1-2 WEEKS AFTER DISCHARGE. PT REMINDED TO GO TO [facility] TO TAKE OUT THE STITCHES ON HIS HEAD ON 06/08/18-HE VERBALIZED UNDERSTANDING OF THAT.
== END 2018-06-03 09:15 | disposition left against medical advice (07) | DRG 894 ==
LOC: YASAS 10:09 → Y5N 15:45
PROVIDERS: ADMIT Psychiatry & Neurology Psychiatry; ATTEND Psychiatry & Neurology Psychiatry
PROC: HZ42ZZZ Group Counseling for Substance Abuse Treatment, Cognitive-Behavioral (ICD-10-PCS; principal; 2018-06-01)
DX: F10.20 Alcohol dependence, uncomplicated (principal); F17.210 Nicotine dependence, cigarettes, uncomplicated; I10 Essential (primary) hypertension
CPT/HCPCS: 36415; 80053; 81003; 81015; 85027; 86593

== ENCOUNTER 2018-06-05 12:49 | Emergency (ER) | payer BC, OTHER ==
[2018-06-05 12:59] VITALS: BP 146/86; PULSE 69; TEMP 98.1; BMI 21.0
--- NOTE | 2018-06-05 13:24 | PDOC ---
Suture Removal/Wound Check HPI - History of Present Illness Chief Complaint: Suture/Staple Removal(Here) Stated Complaint: STITCH REMOVAL Time Seen by Provider: 06/05/18 12:59 History Source: Yes: Patient Exam Limitations: Yes: No Limitations Treated at: [facility] ED - Previous ED Treatment Type of procedure performed on last visit: Yes: Laceration Repair Tetanus Immunization: Yes: Up to Date Antibiotics Prescribed: No Past History - Travel Traveled outside of the country in the last 30 days: No Close contact w/someone who was outside of country & ill: No - Past Medical History Allergies/Adverse Reactions: Allergies Allergy/AdvReac Type Severity Reaction Status Date / Time No Known Allergies Allergy Verified 06/05/18 12:58 Home Medications: Ambulatory Orders Aspirin [Ecotrin] 81 mg PO DAILY 06/02/18 Triamcinolone 0.1% Cream [Aristocort 0.1% Cream -] 1 applic TP BID 06/02/18 Anemia: No Asthma: No Cancer: No Cardiac Disorders: No CVA: No COPD: No CHF: No DVT: No Dementia: No Diabetes: No Dialysis: No GI Disorders: No Disorders: No HTN: Yes (on lisinopril ) Hypercholesterolemia: No Kidney Stones: No Liver Disease: No Seizures: No Thyroid Disease: No - Surgical History Abdominal Surgery: No Appendectomy: No Cardiac Surgery: No Cholecystectomy: No Lung Surgery: No Neurologic Surgery: No Orthopedic Surgery: Yes (rt shouler fx at age 24yrs) - Reproductive History Testicular Surgery: No - Immunization History Td Vaccination: Yes Immunization Up to Date: Yes - Suicide/Smoking/Psychosocial Hx Smoking Status: No Smoking History: Current every day smoker Years of Tobacco Use: 5 Have you smoked in the past 12 months: Yes Number of Cigarettes Smoked Daily: 20 Cigars Per Day: 0 Information on smoking cessation initiated: No 'Breaking Loose' booklet given: 12/16/17 Hx Alcohol Use: Yes Drug/Substance Use Hx: No Substance Use Type: Alcohol (Started drinking alcohol at age 21, consumes 5 cans daily. Last drank on 12/08/17) Hx Substance Use Treatment: Yes Suture Removal/Wound Check PE - Physical Exam Laceration/Wound Check Symptoms: reports: None Current Severity Level: None Maximum Severity Level: None Pain Localization: None Location of Laceration/Wound: bilateral: Head (9 total jimi removed from 2 scalp laceratrions. well approximated, ) *Review of Systems - Review of Systems Able to Perform ROS?: Yes Constitutional: Yes: See HPI. No: Symptoms Reported, Fever, Malaise HEENTM: Yes: See HPI. No: Symptoms Reported Neurological: Yes: See HPI. No: Symptoms reported, Headache All Other Systems: Reviewed and Negative *Physical Exam - Vital Signs Last Vital Signs Temp Pulse Resp BP Pulse Ox 98.1 F 69 18 146/86 99 06/05/18 12:58 06/05/18 12:58 06/05/18 12:58 06/05/18 12:58 06/05/18 12:58 - Physical Exam General Appearance: Yes: Nourished, Appropriately Dressed. No: Apparent Distress HEENT: positive: [place], Normal ENT Inspection, TMs Normal, Pharynx Normal Neck: negative: Tender Respiratory/Chest: positive: Lungs Clear Moderate Sedation - Procedure Monitoring Vital Signs: Procedure Monitoring Vital Signs Temperature 98.1 F 06/05/18 12:58 Pulse Rate 69 06/05/18 12:58 Respiratory Rate 18 06/05/18 12:58 Blood Pressure 146/86 06/05/18 12:58 O2 Sat by Pulse Oximetry (%) 99 06/05/18 12:58 *DC/Admit/Observation/Transfer Diagnosis at time of Disposition: Visit for suture removal - Discharge Dispostion Disposition: HOME Condition at time of disposition: Stable Decision to Admit order: No - Referrals - Patient Instructions Printed Discharge Instructions: DI for Suture Removal - Post Discharge Activity
== END 2018-06-05 13:26 | disposition home or self-care (01) ==
LOC: JERFT 12:49
DX: Z48.817 Encounter for surgical aftercare following surgery on the skin and subcutaneous tissue (principal); Z48.02 Encounter for removal of sutures
CPT/HCPCS: 99281-25

== ENCOUNTER 2021-09-09 23:15 | Observation (INO) | payer BC, OTHER ==
[2021-09-09 23:45] VITALS: BMI 24.2
[2021-09-10 00:27] LABS: BASO % 0.5 % (0-2.0); EOS % 2.2 % (0-4.5); HEMATOCRIT 45.9 % (35.4-49); HEMOGLOBIN 15.6 GM/dL (11.7-16.9); LYMPH % 31.2 % (8-40); MCH 30.3 pg (25.7-33.7); MEAN CELL VOLUME 89.3 fl (80-96); MEAN PLT VOLUME 7.5 fl (7.5-11.1); MONO % 8.9 % (3.8-10.2); NEUT % 57.2 % (42.8-82.8); PLATELET COUNT 190 10^3/uL (134-434); RBC 5.14 M/mm3 (4.00-5.60); RDW 13.8 % (11.9-15.9); WHITE BLOOD COUNT 6.7 K/mm3 (4.0-10.0)
[2021-09-10 00:45] LABS: CHLORIDE 107 mmol/L (98-107); SODIUM 138 mmol/L (136-145)
[2021-09-10 00:47] LABS: CALCIUM 9.8 mg/dL (8.5-10.1)
[2021-09-10 00:48] LABS: ALBUMIN 4.1 g/dl (3.4-5.0); ANION GAP 8 MMOL/L (8-16); BLOOD UREA NITROGEN 20.5 mg/dL (7-18); CO2 23 mmol/L (21-32); GLUCOSE,RANDOM 122 mg/dL (74-106)
[2021-09-10 00:51] LABS: CREATININE 0.8 mg/dL (0.55-1.3); SGOT/AST 19 U/L (15-37); SGPT/ALT 25 U/L (13-61)
[2021-09-10 00:52] LABS: BILIRUBIN,TOTAL 0.4 mg/dL (0.2-1)
[2021-09-10 00:53] LABS: TOT PROT 7.3 g/dl (6.4-8.2)
[2021-09-10 00:54] LABS: ALK PHOS 69 U/L (45-117)
[2021-09-10 02:05] LABS: MAGNESIUM 2.2 mg/dL (1.8-2.4)
[2021-09-10 02:13] LABS: N-TERMINAL BNP 314.7 pg/ml (5-125)
[2021-09-10] MEDS ORDERED: ASPIRIN 81 MG CHEWABLE TABLETS PO ONE (03:20)
[2021-09-10] MEDS ORDERED: ASPIRIN 81 MG CHEWABLE TABLETS ONE (03:23)
[2021-09-10] MEDS ORDERED: LORazepam 1 MG TABLET PO PRN (03:55)
[2021-09-10] MEDS ORDERED: ENOXAPARIN NA (PORCINE) 40 MG/0.4 ML DISP.SYRIN SQ ONE ×2 (05:24→10:34)
[2021-09-10] MEDS: ENOXAPARIN NA (PORCINE) 40 MG/0.4 ML DISP.SYRIN SQ SCH ×2 (05:27→10:45)
[2021-09-10 08:17] LABS: BASO % 0.2 % (0-2.0); EOS % 1.7 % (0-4.5); HEMATOCRIT 45.9 % (35.4-49); HEMOGLOBIN 15.3 GM/dL (11.7-16.9); LYMPH % 29.6 % (8-40); MCH 29.7 pg (25.7-33.7); MCHC 33.4 g/dl (32.0-35.9); MEAN PLT VOLUME 7.8 fl (7.5-11.1); MONO % 9.2 % (3.8-10.2); NEUT % 59.3 % (42.8-82.8); PLATELET COUNT 207 10^3/uL (134-434); RBC 5.16 M/mm3 (4.00-5.60); RDW 13.8 % (11.9-15.9); WHITE BLOOD COUNT 5.8 K/mm3 (4.0-10.0)
[2021-09-10 08:43] LABS: BLOOD UREA NITROGEN 13.9 mg/dL (7-18); CALCIUM 9.5 mg/dL (8.5-10.1); MAGNESIUM 2.4 mg/dL (1.8-2.4)
[2021-09-10 08:44] LABS: ALBUMIN 3.9 g/dl (3.4-5.0)
[2021-09-10 08:46] LABS: PHOSPHOROUS 2.6 mg/dL (2.5-4.9)
[2021-09-10 08:47] LABS: BILIRUBIN,TOTAL 0.5 mg/dL (0.2-1); CREATININE 0.7 mg/dL (0.55-1.3)
[2021-09-10 08:48] LABS: CHOLESTEROL 190 mg/dL (50-200); TOT PROT 6.9 g/dl (6.4-8.2); TRIGLYCERIDES 82 mg/dL (0-150)
[2021-09-10 08:50] LABS: LDL CHOLESTEROL (ONLY SJRH) 125 mg/dL (5-100)
[2021-09-10 08:51] LABS: HDL CHOLESTEROL 46 mg/dL (40-60)
[2021-09-10] MEDS ORDERED: ATORVASTATIN CA 20 MG TABLET (FP) PO ONE (09:10)
[2021-09-10 09:51] VITALS: BP 138/85; PULSE 63; TEMP 97.6
[2021-09-10] MEDS ORDERED: NICOTINE 14 MG/24 HOURS TOPICAL PATCH TD SCH (10:00)
[2021-09-10] MEDS ORDERED: TRIAMCINOLONE ACET 0.1% CREAM 15 GM TUBE TP SCH (10:00)
[2021-09-10] MEDS ORDERED: HYDROCHLOROTHIAZIDE 12.5 MG CAPSULE (FP) PO SCH (10:00)
[2021-09-10] MEDS ORDERED: LISINOPRIL 20 MG TABLET PO SCH (10:00)
[2021-09-10] MEDS ORDERED: HYDROXYCHLOROQUINE SO4 200 MG TABLET (FP) PO SCH (10:00)
[2021-09-10] MEDS ORDERED: ATORVASTATIN CA 20 MG TABLET (FP) ONE (10:32)
[2021-09-10] MEDS ORDERED: LISINOPRIL 20 MG TABLET ONE (10:33)
[2021-09-10] MEDS ORDERED: LORazepam 1 MG TABLET ONE (10:33)
[2021-09-10] MEDS ORDERED: NICOTINE 14 MG/24 HOURS TOPICAL PATCH TD ONE (10:34)
[2021-09-11] MEDS ORDERED: ATORVASTATIN CA 20 MG TABLET (FP) PO SCH (10:00)
[2021-09-11] MEDS ORDERED: ASPIRIN COATED 81 MG TABLET.EC PO SCH (10:00)
[2021-09-12] MEDS ORDERED: LORazepam 0.5 MG TABLET PO PRN
== END 2021-09-10 12:00 | disposition left against medical advice (07) ==
LOC: JER 23:15 → JERBED 09-10 02:54
PROVIDERS: ADMIT Internal Medicine; ATTEND Internal Medicine
DX: I21.4 Non-ST elevation (NSTEMI) myocardial infarction (principal); R07.89 Other chest pain; I10 Essential (primary) hypertension; F17.210 Nicotine dependence, cigarettes, uncomplicated; Z79.82 Long term (current) use of aspirin; F10.10 Alcohol abuse, uncomplicated; I16.0 Hypertensive urgency; M32.10 Systemic lupus erythematosus, organ or system involvement unspecified
CPT/HCPCS: 36415; 71045-TC-FY; 71275-TC; 74174-TC; 80053; 80061; 80307; 83036; 83735; 83880; 84100; 84443; 84484; 85025; 93005; 93010; 93306-TC; 99285-25; C9803-CS; G0378; U0003; U0005

== ENCOUNTER 2021-09-10 16:05 | Inpatient (IN) | payer BC, OTHER ==
[2021-09-10 18:44] LABS: BASO % 0.2 % (0-2.0); EOS % 1.2 % (0-4.5); HEMATOCRIT 46.7 % (35.4-49); HEMOGLOBIN 15.6 GM/dL (11.7-16.9); LYMPH % 27.4 % (8-40); MCH 29.8 pg (25.7-33.7); MCHC 33.4 g/dl (32.0-35.9); MEAN CELL VOLUME 89.2 fl (80-96); MEAN PLT VOLUME 7.8 fl (7.5-11.1); MONO % 10.5 % (3.8-10.2); NEUT % 60.7 % (42.8-82.8); PLATELET COUNT 211 10^3/uL (134-434); RBC 5.23 M/mm3 (4.00-5.60); RDW 13.9 % (11.9-15.9); WHITE BLOOD COUNT 6.5 K/mm3 (4.0-10.0)
[2021-09-10 18:51] LABS: INR 1.12 (0.83-1.09); PROTHROMBIN TIME (PATIENT) 12.9 SEC (9.7-13.0)
[2021-09-10 18:54] LABS: ACTIVATED PTT 37.5 SECONDS (25.2-36.5)
[2021-09-10 19:09] LABS: CHLORIDE 106 mmol/L (98-107); SODIUM 141 mmol/L (136-145)
[2021-09-10 19:11] LABS: ALBUMIN 4.1 g/dl (3.4-5.0); ANION GAP 9 MMOL/L (8-16); BLOOD UREA NITROGEN 19.9 mg/dL (7-18); CO2 26 mmol/L (21-32); GLUCOSE,RANDOM 81 mg/dL (74-106)
[2021-09-10 19:14] LABS: CREATININE 0.9 mg/dL (0.55-1.3); SGOT/AST 16 U/L (15-37); SGPT/ALT 24 U/L (13-61)
[2021-09-10 19:16] LABS: BILIRUBIN,TOTAL 0.5 mg/dL (0.2-1); TOT PROT 7.3 g/dl (6.4-8.2)
[2021-09-10 19:17] LABS: ALK PHOS 71 U/L (45-117)
[2021-09-10] MEDS ORDERED: HEPARIN NA (PORCINE) 5,000 UNITS/ML 1ML VIAL IVPUSH PRN ×2 (20:18)
[2021-09-10] MEDS ORDERED: HEPARIN NA (PORCINE) 5,000 UNITS/ML 1ML VIAL IVPUSH ONE (20:18)
[2021-09-10] MEDS ORDERED: CLOPIDOGREL BISULFATE 300 MG TABLET PO ONE (20:18)
[2021-09-10] MEDS ORDERED: ATORVASTATIN CA 80 MG TABLET (FP) PO ONE (20:22)
[2021-09-10] MEDS ORDERED: METOPROLOL TARTRATE 25 MG TABLET (FP) PO ONE (20:23)
[2021-09-10] MEDS ORDERED: HEPARIN NA (PORCINE) 5,000 UNITS/ML 1ML VIAL ONE (20:30)
[2021-09-10] MEDS ORDERED: CLOPIDOGREL BISULFATE 300 MG TABLET ONE (20:30)
[2021-09-10] MEDS ORDERED: METOPROLOL TARTRATE 25 MG TABLET (FP) ONE (20:30)
[2021-09-10] MEDS ORDERED: ATORVASTATIN CA 80 MG TABLET (FP) ONE (20:30)
[2021-09-10] MEDS ORDERED: HEPARIN INFUSION - 25,000 UNITS/500 ML INFUS.BAG IVPB ONE (20:31)
[2021-09-10] MEDS: HEPARIN INFUSION - 25,000 UNITS/500 ML INFUS.BAG IVPB SCH (21:19)
[2021-09-11 00:20] VITALS: BMI 22.8
[2021-09-11] MEDS: METOPROLOL TARTRATE 25 MG TABLET (FP) PO SCH ×3 (05:35→21:19)
[2021-09-11 07:23] LABS: BASO % 0.4 % (0-2.0); EOS % 2.4 % (0-4.5); HEMATOCRIT 43.2 % (35.4-49); HEMOGLOBIN 14.6 GM/dL (11.7-16.9); LYMPH % 36.9 % (8-40); MCHC 33.8 g/dl (32.0-35.9); MEAN PLT VOLUME 7.7 fl (7.5-11.1); MONO % 10.7 % (3.8-10.2); NEUT % 49.6 % (42.8-82.8); PLATELET COUNT 185 10^3/uL (134-434); RBC 4.86 M/mm3 (4.00-5.60); RDW 14.1 % (11.9-15.9)
[2021-09-11 07:37] LABS: MAGNESIUM 2.3 mg/dL (1.8-2.4)
[2021-09-11] MEDS ORDERED: TRIAMCINOLONE ACET 0.1% CREAM 15 GM TUBE TP SCH (10:00)
[2021-09-11] MEDS ORDERED: REGADENOSON 0.4 MG/5 ML PRE-FILLED SYRINGE IVPUSH ONE ×2 (11:53→13:45)
[2021-09-11] MEDS ORDERED: DESOXIMETASONE TP SCH (13:15)
[2021-09-11] MEDS: CLOPIDOGREL BISULFATE 75 MG TABLET (FP) PO SCH (14:49)
[2021-09-11] MEDS: ASPIRIN COATED 81 MG TABLET.EC PO SCH (14:50)
[2021-09-11] MEDS: HYDROXYCHLOROQUINE SO4 200 MG TABLET (FP) PO SCH ×2 (14:51→21:19)
[2021-09-11] MEDS: valACYclovir HCL 500 MG TABLET (FP) PO SCH ×2 (15:28→21:19)
[2021-09-11] MEDS: NICOTINE 21 MG/24 HOURS TOPICAL PATCH TD SCH (17:23)
[2021-09-11] MEDS: HEPARIN INFUSION - 25,000 UNITS/500 ML INFUS.BAG IVPB SCH (21:16)
[2021-09-11] MEDS: ATORVASTATIN CA 80 MG TABLET (FP) PO SCH (21:18)
[2021-09-12] MEDS: METOPROLOL TARTRATE 25 MG TABLET (FP) PO SCH ×3 (05:55→21:25)
[2021-09-12 07:38] LABS: BASO % 0.3 % (0-2.0); HEMATOCRIT 42.3 % (35.4-49); HEMOGLOBIN 14.3 GM/dL (11.7-16.9); LYMPH % 39.6 % (8-40); MCH 30.2 pg (25.7-33.7); MCHC 33.9 g/dl (32.0-35.9); MEAN CELL VOLUME 89.2 fl (80-96); MEAN PLT VOLUME 7.7 fl (7.5-11.1); NEUT % 46.1 % (42.8-82.8); PLATELET COUNT 174 10^3/uL (134-434); RBC 4.75 M/mm3 (4.00-5.60); RDW 14.1 % (11.9-15.9); WHITE BLOOD COUNT 6.2 K/mm3 (4.0-10.0)
[2021-09-12 08:14] LABS: ALBUMIN 3.7 g/dl (3.4-5.0); CALCIUM 9.3 mg/dL (8.5-10.1); MAGNESIUM 2.3 mg/dL (1.8-2.4)
[2021-09-12 08:17] LABS: CREATININE 0.9 mg/dL (0.55-1.3); PHOSPHOROUS 3.4 mg/dL (2.5-4.9)
[2021-09-12 08:19] LABS: BILIRUBIN,TOTAL 0.6 mg/dL (0.2-1); TOT PROT 6.5 g/dl (6.4-8.2)
[2021-09-12] MEDS: NICOTINE 21 MG/24 HOURS TOPICAL PATCH TD SCH (09:27)
[2021-09-12] MEDS: valACYclovir HCL 500 MG TABLET (FP) PO SCH ×2 (09:28→21:24)
[2021-09-12] MEDS: ASPIRIN COATED 81 MG TABLET.EC PO SCH (09:28)
[2021-09-12] MEDS: HYDROXYCHLOROQUINE SO4 200 MG TABLET (FP) PO SCH ×2 (09:30→21:24)
[2021-09-12] MEDS: CLOPIDOGREL BISULFATE 75 MG TABLET (FP) PO SCH (11:06)
[2021-09-12] MEDS ORDERED: CLOPIDOGREL BISULFATE 75 MG TABLET (FP) PO ONE (12:00)
[2021-09-12] MEDS: NYSTATIN 500,000 UNITS/5 ML SUSPENSION PO SCH ×2 (14:03→17:13)
[2021-09-12] MEDS ORDERED: LORazepam 0.5 MG TABLET PO ONE (17:10)
[2021-09-12] MEDS: HEPARIN INFUSION - 25,000 UNITS/500 ML INFUS.BAG IVPB SCH (20:31)
[2021-09-12] MEDS: ATORVASTATIN CA 80 MG TABLET (FP) PO SCH (21:25)
[2021-09-13] MEDS: NYSTATIN 500,000 UNITS/5 ML SUSPENSION PO SCH ×5 (00:21→23:54)
[2021-09-13] MEDS: METOPROLOL TARTRATE 25 MG TABLET (FP) PO SCH ×3 (06:21→21:06)
[2021-09-13 08:54] LABS: HEMATOCRIT 44.2 % (35.4-49); HEMOGLOBIN 14.8 GM/dL (11.7-16.9); MCH 29.7 pg (25.7-33.7); MCHC 33.4 g/dl (32.0-35.9); MEAN CELL VOLUME 88.9 fl (80-96); MEAN PLT VOLUME 7.8 fl (7.5-11.1); PLATELET COUNT 178 10^3/uL (134-434); RBC 4.97 M/mm3 (4.00-5.60); RDW 13.8 % (11.9-15.9); WHITE BLOOD COUNT 7.2 K/mm3 (4.0-10.0)
[2021-09-13] MEDS: valACYclovir HCL 500 MG TABLET (FP) PO SCH ×2 (09:33→21:06)
[2021-09-13] MEDS: NICOTINE 21 MG/24 HOURS TOPICAL PATCH TD SCH (09:33)
[2021-09-13] MEDS: ASPIRIN COATED 81 MG TABLET.EC PO SCH (09:33)
[2021-09-13] MEDS: HYDROXYCHLOROQUINE SO4 200 MG TABLET (FP) PO SCH ×2 (09:33→21:06)
[2021-09-13] MEDS: CLOPIDOGREL BISULFATE 75 MG TABLET (FP) PO SCH (09:33)
[2021-09-13 17:09] LABS: SARS-CoV-2 NAA Not Detected (Not Detected)
[2021-09-13] MEDS: ATORVASTATIN CA 80 MG TABLET (FP) PO SCH (21:06)
[2021-09-13] MEDS: HEPARIN INFUSION - 25,000 UNITS/500 ML INFUS.BAG IVPB SCH (21:07)
[2021-09-14] MEDS: METOPROLOL TARTRATE 25 MG TABLET (FP) PO SCH ×3 (06:21→21:17)
[2021-09-14] MEDS: NYSTATIN 500,000 UNITS/5 ML SUSPENSION PO SCH ×3 (06:21→18:05)
[2021-09-14] MEDS ORDERED: LORazepam 0.5 MG TABLET PO ONE (09:10)
[2021-09-14] MEDS: NICOTINE 21 MG/24 HOURS TOPICAL PATCH TD SCH (09:18)
[2021-09-14] MEDS: HYDROXYCHLOROQUINE SO4 200 MG TABLET (FP) PO SCH ×2 (09:19→21:17)
[2021-09-14] MEDS: valACYclovir HCL 500 MG TABLET (FP) PO SCH ×2 (09:19→21:17)
[2021-09-14] MEDS: ASPIRIN COATED 81 MG TABLET.EC PO SCH (09:19)
[2021-09-14] MEDS: CLOPIDOGREL BISULFATE 75 MG TABLET (FP) PO SCH (09:19)
[2021-09-14 11:15] LABS: BASO % 0.3 % (0-2.0); EOS % 0.9 % (0-4.5); HEMATOCRIT 46.6 % (35.4-49); HEMOGLOBIN 15.7 GM/dL (11.7-16.9); LYMPH % 26.3 % (8-40); MCH 30.3 pg (25.7-33.7); MCHC 33.7 g/dl (32.0-35.9); MONO % 9.2 % (3.8-10.2); NEUT % 63.3 % (42.8-82.8); PLATELET COUNT 175 10^3/uL (134-434); RBC 5.18 M/mm3 (4.00-5.60); RDW 13.9 % (11.9-15.9); WHITE BLOOD COUNT 6.4 K/mm3 (4.0-10.0)
[2021-09-14] MEDS: HEPARIN INFUSION - 25,000 UNITS/500 ML INFUS.BAG IVPB SCH ×2 (11:34→18:01)
[2021-09-14 11:46] LABS: ALBUMIN 4.2 g/dl (3.4-5.0); BLOOD UREA NITROGEN 18.4 mg/dL (7-18); MAGNESIUM 2.7 mg/dL (1.8-2.4)
[2021-09-14 11:49] LABS: CREATININE 0.9 mg/dL (0.55-1.3); PHOSPHOROUS 3.3 mg/dL (2.5-4.9)
[2021-09-14 11:50] LABS: BILIRUBIN,TOTAL 0.6 mg/dL (0.2-1); TOT PROT 7.7 g/dl (6.4-8.2)
[2021-09-14] MEDS: ATORVASTATIN CA 80 MG TABLET (FP) PO SCH (21:17)
[2021-09-14] MEDS: MELATONIN 5 MG TABLETS PO SCH (21:17)
[2021-09-15] MEDS: NYSTATIN 500,000 UNITS/5 ML SUSPENSION PO SCH ×5 (00:10→23:51)
[2021-09-15] MEDS: METOPROLOL TARTRATE 25 MG TABLET (FP) PO SCH ×3 (05:37→21:17)
[2021-09-15 07:20] LABS: BASO % 0.3 % (0-2.0); EOS % 2.1 % (0-4.5); HEMATOCRIT 44.8 % (35.4-49); HEMOGLOBIN 14.8 GM/dL (11.7-16.9); LYMPH % 28.9 % (8-40); MCH 29.9 pg (25.7-33.7); MCHC 33.1 g/dl (32.0-35.9); MEAN CELL VOLUME 90.1 fl (80-96); MEAN PLT VOLUME 8.3 fl (7.5-11.1); MONO % 10.6 % (3.8-10.2); NEUT % 58.1 % (42.8-82.8); PLATELET COUNT 162 10^3/uL (134-434); RBC 4.97 M/mm3 (4.00-5.60); RDW 13.6 % (11.9-15.9); WHITE BLOOD COUNT 7.3 K/mm3 (4.0-10.0)
[2021-09-15 07:30] LABS: ALBUMIN 3.8 g/dl (3.4-5.0); BLOOD UREA NITROGEN 23.7 mg/dL (7-18); CALCIUM 9.5 mg/dL (8.5-10.1); MAGNESIUM 2.4 mg/dL (1.8-2.4)
[2021-09-15 07:33] LABS: CREATININE 0.9 mg/dL (0.55-1.3); PHOSPHOROUS 3.4 mg/dL (2.5-4.9)
[2021-09-15 07:35] LABS: BILIRUBIN,TOTAL 0.4 mg/dL (0.2-1)
[2021-09-15 07:37] LABS: TOT PROT 6.7 g/dl (6.4-8.2)
[2021-09-15] MEDS: valACYclovir HCL 500 MG TABLET (FP) PO SCH ×2 (09:58→21:17)
[2021-09-15] MEDS: CLOPIDOGREL BISULFATE 75 MG TABLET (FP) PO SCH (09:58)
[2021-09-15] MEDS: HYDROXYCHLOROQUINE SO4 200 MG TABLET (FP) PO SCH ×2 (09:58→21:17)
[2021-09-15] MEDS: HEPARIN INFUSION - 25,000 UNITS/500 ML INFUS.BAG IVPB SCH (09:59)
[2021-09-15] MEDS: ASPIRIN COATED 81 MG TABLET.EC PO SCH (09:59)
[2021-09-15] MEDS: NICOTINE 21 MG/24 HOURS TOPICAL PATCH TD SCH (10:11)
[2021-09-15 21:17] VITALS: BP 143/76; PULSE 68; TEMP 98.7
[2021-09-15] MEDS: ATORVASTATIN CA 80 MG TABLET (FP) PO SCH (21:17)
[2021-09-15] MEDS: MELATONIN 5 MG TABLETS PO SCH (21:17)
== END 2021-09-16 00:30 | disposition short-term general hospital (02) | DRG 282 ==
LOC: JER 16:05 → JERBED 20:27 → J4W 23:39
PROVIDERS: ADMIT Internal Medicine; ATTEND Internal Medicine
DX: I21.4 Non-ST elevation (NSTEMI) myocardial infarction (principal); F17.210 Nicotine dependence, cigarettes, uncomplicated; M32.8 Other forms of systemic lupus erythematosus; F10.20 Alcohol dependence, uncomplicated; B00.1 Herpesviral vesicular dermatitis; F41.9 Anxiety disorder, unspecified; E78.5 Hyperlipidemia, unspecified; J44.9 Chronic obstructive pulmonary disease, unspecified; I11.0 Hypertensive heart disease with heart failure; I50.9 Heart failure, unspecified; I25.10 Atherosclerotic heart disease of native coronary artery without angina pectoris
CPT/HCPCS: 36415; 71275-TC; 74174-TC; 78452-TC; 80053; 80061; 80307; 83036; 83735; 83880; 84100; 84443; 84484; 85025; 85027; 85610; 85730; 93005; 93010; 93017; 93306-TC; 99285-25; A9502; C9803-CS; G0378; J1644; J2785; U0003; U0005